=== PATIENT | female | born 1930 | race Caucasian/White ===

== ENCOUNTER → 2017-10-27 | Outpatient (CLI) | payer MEDICARE, MEDICAID ==
[~2017-10-27] MED LIST: ABA250I IV; ACET-2031 PO; ACET500T68 PO; ALBU8.5H IH; AMLO-96 PO; ASPI-757 PO; AZIT-1 PO; AZIT-17 PO; CEPH250C37 PO; CHOL200038 PO; CITA-139 PO; CORED OT; DONE5TAB29 PO; DUL20 PO; GOLYTE PO; HYDR-318 PO; HYDR-420 PO; HYDR-4308 PO; IBUP400T13 PO; LACT1CAP74 PO; LEFL20TA6 PO; LEV112 PO; LEV125 PO; LEVO175T42 PO; LEVO200T50 PO; LEVO50TA86 PO; LISI-362 PO; MELA3TAB45 PO; MELO-207 PO; OMEP-125 PO; OMEP40CA48 PO; OXYGENHOME INH; PRE5 PO; PREG50CA48 PO; PROP20TA56 PO; TERB12GE TP; TRAZ-156 PO; VIT-9 PO
== END ==
LOC: ZZSPRING 00:17
PROVIDERS: ATTEND Family Medicine
DX: E03.9 Hypothyroidism, unspecified (principal); M06.9 Rheumatoid arthritis, unspecified; I10 Essential (primary) hypertension; R52 Pain, unspecified
CPT/HCPCS: 36415; 82310; 82374; 82435; 82565; 82947; 84132; 84295; 84443; 84520; 85027

== ENCOUNTER 2017-11-24 20:32 | Emergency (ER) | payer MEDICARE, MEDICAID ==
[~2017-11-24 20:32] MED LIST changes: +HYDR-385 PO; +[UNRECOGNIZED DRUG - CODE] MC; +[UNRECOGNIZED DRUG - CODE] MC
--- NOTE | 2017-11-24 20:45 | ER Report ---
History and Physical Time Seen By MD: 20:45 HPI/ROS CHIEF COMPLAINT: stomach pain after eating hearing aides HISTORY OF PRESENT ILLNESS: This is an 86 year old female. She is a resident of [facility]. The nurse noted that the patient had eaten her hearing aides, although the patient has dementia and does not remember doing this. There are still some parts of the hearing aides availabe, and the batteries were not eaten. It was after this that the patient was complaining of some stomach pain. These complaints are inconsistent, sometimes the pain is there and sometimes she denies pain. The patient is very hard of hearing without her hearing aides. Allergies: Coded Allergies: levofloxacin (Verified Allergy, Intermediate, Disoriented, 11/24/17) Sulfa (Sulfonamide Antibiotics) (Verified Allergy, Unknown, Hives, 11/24/17 ) sulfamethoxazole (Verified Allergy, Unknown, Hives, 11/24/17) tuberculin,PPD,multi-puncture (Verified Allergy, Unknown, 11/24/17) Home Meds Active Scripts Duloxetine Hcl (CYMBALTA) 20 Mg Capcr, 20 MG PO QDAY for 90 Days, #90 CAP Prov:KIRIT SHERWOOD MD 11/24/17 Hydrocodone Bit/Acetaminophen (HYDROCODON-ACETAMINOPHEN 5-325) 1 Each Tablet, 0.5 EACH PO QHS for 30 Days, #15 TAB Prov:KIRIT SHERWOOD MD 11/11/17 Incontinence Pad,Liner,Disp (UNDERPAD) 1 Each Each, PACK MC HS, #1 11 Refills Pack of 30 plus 11 refills Use 1 incontinence pad under pateint per night length of need: 99 months Prov:KIRIT SHERWOOD MD 11/10/17 Diaper,Brief,Adult,Disposable (OVERNIGHT BRIEFS) 1 Each Each, PACK MC HS, #1 11 Refills Pack of #30 plus 11 refills use 1 brief per night Length of need: 99 months Prov:KIRIT SHERWOOD MD 11/10/17 Omeprazole (OMEPRAZOLE) 20 Mg Capsule.dr, 1 CAP PO QODAY for 90 Days, #90 CAP 4 Refills Prov:KIRIT SHERWOOD MD 10/22/17 Acetaminophen (TYLENOL EXTRA STRENGTH) 500 Mg Tablet, 2 TAB PO BID for 90 Days, #180 TAB 1 Refill Prov:KIRIT SHERWOOD MD 10/08/17 Cholecalciferol (Vitamin D3) (VITAMIN D3) 2,000 Unit Tablet, 1 TAB PO DAILY, # 180 TAB 3 Refills Prov:KIRIT SHERWOOD MD 07/22/17 Trazodone Hcl (TRAZODONE HCL) 50 Mg Tablet, 25 MG PO QHS, #90 TAB 3 Refills Prov:KIRIT SHERWOOD MD 07/22/17 Levothyroxine Sodium (LEVOTHYROXINE SODIUM) 0.125 Mg Tab, 2 TAB PO QDAY for 90 Days, #180 TAB 3 Refills Prov:KIRIT SHERWOOD MD 07/15/17 Lactobacillus Rhamnosus Gg (CULTURELLE) 1 Each Capsule, 1 EACH PO DIRECTED, # 90 CAPSULE 4 Refills As directed on package. Prov:KIRIT SHERWOOD MD 07/06/17 Cephalexin (KEFLEX) 250 Mg Capsule, 1 CAP PO DAILY, #90 CAP 3 Refills Prov:SIGIFREDO PISANO MD 02/20/17 Melatonin (MELATONIN) 3 Mg Tablet.er, 3 MG PO HS, #90 TAB 3 Refills Prov:SIGIFREDO PISANO MD 02/13/17 Aspirin (ASPIRIN) 325 Mg Tablet, 1 TAB PO Q4-6H Y for PAIN, #90 TAB 3 Refills Prov:SIGIFREDO PISANO MD 11/25/16 Neomycin/Polymyxin B Sulf/Hc (Cortisporin [DSC] EAR SOLN) 10 Ml Solution, 2 DROP OT PRN, #1 BOT 3 Refills Prov:SIGIFREDO PISANO MD 11/25/16 Albuterol Sulfate 90 Mcg/Act (PROAIR HFA 90 MCG/ACT) 8.5 Gm Hfa.aer.ad, 2 PUFF IH Q4-6H Y for WHEEZING, #3 INHALER 3 Refills Prov:SIGIFREDO PISANO MD 11/25/16 Reported Medications Vit A/Vit C/Vit E/Zinc/Copper (PRESERVISION AREDS TABLET) 1 Each Tablet, PO 07/22/17 Acetaminophen (ACETAMINOPHEN) 325 Mg Tablet, 1-2 TAB PO Q4-6H Y for PAIN, TAB 04/29/17 Oxygen (OXYGEN) Inha, 3 L INH, L 11/25/16 Reviewed Nurses Notes: Yes Smoking Status: Never Smoker Hx Substance Use Disorder: Yes (OPIOID DEPENDENCE) Hx Alcohol Use: No Constitutional Vital Sign - Last 24 Hours 11/24/17 11/24/17 11/24/17 20:39 22:19 22:29 Temp 98.6 Pulse 108 89 90 Resp 18 14 16 B/P (MAP) 150/88 136/73 (94) Pulse Ox 94 94 94 O2 Delivery Nasal Cannula Nasal Cannula Nasal Cannula O2 Flow Rate 3 Physical Exam General Appearance: Alert, no acute distress. Eyes: Pupils equal and round no injection. ENT: Normal oral mucosa. Moist mucous membranes. Normal posterior oropharynx. Neck: Neck is supple and non tender. Respiratory: Chest is non tender, lungs are clear to auscultation. Cardiac: regular rate and rhythm Gastrointestinal: Abdomen is soft, discomfort periumbilical area, nondistended, no rebound or guarding. DIFFERENTIAL DIAGNOSIS: After history and physical exam differential diagnosis was considered for concern about abdominal pain after eating hearing aids. We will go ahead and get an abdomen three-view Medical Decision Making EKG/Imaging Imaging ACUTE ABDOMEN SERIES 3 VIEW HISTORY: Swallowed hearing aids. Abdominal pain. COMPARISON: Chest x-ray 01/01/2017 and 02/02/2017. No prior abdominal x-ray TECHNIQUE: PA upright view of the chest, AP supine and AP upright views of the abdomen. Chest: There is mild scarring or atelectasis at the left lateral lung base, unchanged. There is linear scar atelectasis at the right medial lung base, unchanged. No pneumothorax or pleural effusion. The cardiac and mediastinal silhouettes are within normal limits. There is mild aortic calcification. Bones and soft tissues are unremarkable. Abdomen: The distribution of bowel gas is normal, with bowel in all four quadrants as well as centrally. No free air. There is moderate stool in colon. No dilated loops of bowel. There are surgical clips in the right upper quadrant from cholecystectomy. No foreign body. There is are focal dense areas of splenic artery calcification, and there are 2 2 rounded calcifications that are likely calcified splenic artery aneurysms. The largest is 1.7 cm. There are mild to moderate vascular calcifications. There is moderate to severe degenerative change of the hips. There is moderate degenerative change of the spine, and there is a rightward lumbar curvature. 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 IMPRESSION: 1. No foreign body. 2. Stable chest without acute process. 3. Moderate stool burden without obstruction. Report Dictated By: Natalia Philippe at 11/24/2017 10:05 PM ED Course/Re-evaluation ED Course Some plastic noted in stomach, otherwise no problems. The patient is sleeping comfortably. Decision to Disposition Date: Nov 24, 2017 Decision to Disposition Time: 22:18 Depart Departure Latest Vital Signs Vital Signs Date Time Temp Pulse Resp B/P (MAP) Pulse Ox O2 Delivery O2 Flow Rate FiO2 11/24/17 22:29 90 16 136/73 (94) 94 Nasal Cannula 3 11/24/17 20:39 98.6 Impression: Primary Impression: Swallowed foreign body Condition: Improved Disposition: HOME OR SELF-CARE Referrals: KIRIT SHERWOOD MD (PCP) Patient Instructions: Foreign Body Ingestion (ED) Problem Qualifiers Primary Impression: Swallowed foreign body Encounter type: initial encounter Qualified Codes: T18.9XXA - Foreign body of alimentary tract, part unspecified, initial encounter FLORINDA APPIAH MD Nov 24, 2017 20:45
--- NOTE | 2017-11-24 22:13 | RADIOLOGY IMAGING REPORT ---
[place] [facility] [place] Judie [place] : 1930 MR: [id number] V: [id number] EXAM DATE: ORDERING PHYSICIAN: FLORINDA APPIAH TECHNOLOGIST: Location: [facility] Patient: Judie Perez : 1930 Visit/Account:[id number] Date of Sevice: 11/24/2017 ACUTE ABDOMEN SERIES 3 VIEW HISTORY: Swallowed hearing aids. Abdominal pain. COMPARISON: Chest x-ray 01/01/2017 and 02/02/2017. No prior abdominal x-ray TECHNIQUE: PA upright view of the chest, AP supine and AP upright views of the abdomen. Chest: There is mild scarring or atelectasis at the left lateral lung base, unchanged. There is linea r scar atelectasis at the right medial lung base, unchanged. No pneumothorax or pleural effusion. The cardiac and mediastinal silhouettes are within normal limits. There is mild aortic calcification. Ovi marnie and soft tissues are unremarkable. Abdomen: The distribution of bowel gas is normal, with bowel in all four quadrants as well as central ly. No free air. There is moderate stool in colon. No dilated loops of bowel. There are surgical clip s in the right upper quadrant from cholecystectomy. No foreign body. There is are focal dense areas of splenic artery calcification, and there are 2 2 rounded calcificati ons that are likely calcified splenic artery aneurysms. The largest is 1.7 cm. There are mild to mode rate vascular calcifications. There is moderate to severe degenerative change of the hips. There is m oderate degenerative change of the spine, and there is a rightward lumbar curvature. 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 IMPRESSION: 1. No foreign body. 2. Stable chest without acute process. 3. Moderate stool burden without obstruction. Report Dictated By: Natalia Philippe at 11/24/2017 10:05 PM Report E-Signed By: Natalia Philippe at 11/24/2017 10:09 PM WSN:[id number]
[2017-11-24 22:29] VITALS: BP 136/73
== END 2017-11-24 22:31 | disposition home or self-care (01) ==
LOC: ER 20:51
DX: T18.9XXA Foreign body of alimentary tract, part unspecified, initial encounter (principal)
CPT/HCPCS: 74022; 99282

== ENCOUNTER 2017-12-22 06:30 | Emergency (ER) | payer MEDICARE, MEDICAID ==
[~2017-12-22 06:30] MED LIST changes: +DICL100G39 TOP
--- NOTE | 2017-12-22 06:45 | ER Report ---
History and Physical Time Seen By MD: 06:41 Hx. of Stated Complaint: sob since early this morning. never complains or wants to go to hospital. today she requested she wanted to go the hospital (THADEDUS YOUNG MD) HPI/ROS Patient is an 86-year-old female with known history of COPD who is currently in penitentiary care. Patient awoke this morning complaining of shortness of breath. Caregivers called. They noted that the patient was on her typical 3 L of oxygen. She had subjective complaints of shortness of breath. They had noted that she had been coughing during the night. They noted that her oxygen saturation was as is typical and expected. However, when they listened to her lungs this morning they heard rales in all roldan. They note this patient typically never complains about things. She never wants to go to the doctor and she was requesting to go to the hospital As per phone conversation with penitentiary staff, patient is known to be followed for COPD, cardiac concerns with diastolic dysfunction, pulmonary hypertension, dementia. She has been in stable health until this morning. Patient herself complains of difficulty breathing. She states she doesn't want to take a deep breath because it is hard. I cannot tell from discussion with her if she is having pain with breathing. I cannot tell if she is having any chest pain. REVIEW OF SYSTEMS Gen.: No obvious fever or recent illnesses Eyes: Negative ENT: Denies runny nose or ear pain. No sore throat. Respiratory: As per history of present illness. Cough through the night. Complaints of shortness of breath Cardiac: No complaints of chest pain GI: Negative for acute changes per penitentiary personnel : Does have history of UTIs in the past Musculoskeletal: Negative Neurologic: Patient has no complaints the patient's daughter notes her to be subdued, less animated, and slower to respond and is typical (THADDEUS YONUG MD) Allergies: Coded Allergies: levofloxacin (Verified Allergy, Intermediate, Disoriented, 12/22/17) Sulfa (Sulfonamide Antibiotics) (Verified Allergy, Unknown, Hives, 12/22/17) sulfamethoxazole (Verified Allergy, Unknown, Hives, 12/22/17) tuberculin,PPD,multi-puncture (Verified Allergy, Unknown, 12/22/17) Home Meds Active Scripts Diclofenac Sodium 1% Gel (VOLTAREN 1% GEL) 100 Gm Gel..gram., 2 GM TOP QID for 30 Days, #1 TUBE 3 Refills Prov:KIRIT SHERWOOD MD 12/01/17 Hydrocodone Bit/Acetaminophen (HYDROCODON-ACETAMINOPHEN 5-325) 1 Each Tablet, 0.5 EACH PO BID for 30 Days, #30 TAB Prov:KIRIT SHERWOOD MD 12/01/17 Duloxetine Hcl (CYMBALTA) 20 Mg Capcr, 20 MG PO QDAY for 90 Days, #90 CAP Prov:KIRIT SHERWOOD MD 11/24/17 Incontinence Pad,Liner,Disp (UNDERPAD) 1 Each Each, PACK MC HS, #1 11 Refills Pack of 30 plus 11 refills Use 1 incontinence pad under pateint per night length of need: 99 months Prov:KIRIT SHERWOOD MD 11/10/17 Diaper,Brief,Adult,Disposable (OVERNIGHT BRIEFS) 1 Each Each, PACK MC HS, #1 11 Refills Pack of #30 plus 11 refills use 1 brief per night Length of need: 99 months Prov:KIRIT SHERWOOD MD 11/10/17 Omeprazole (OMEPRAZOLE) 20 Mg Capsule.dr, 1 CAP PO QODAY for 90 Days, #90 CAP 4 Refills Prov:KIRIT SHERWOOD MD 10/22/17 Acetaminophen (TYLENOL EXTRA STRENGTH) 500 Mg Tablet, 2 TAB PO BID for 90 Days, #180 TAB 1 Refill Prov:KIRIT SHERWOOD MD 10/08/17 Cholecalciferol (Vitamin D3) (VITAMIN D3) 2,000 Unit Tablet, 1 TAB PO DAILY, # 180 TAB 3 Refills Prov:KIRIT SHERWOOD MD 07/22/17 Trazodone Hcl (TRAZODONE HCL) 50 Mg Tablet, 25 MG PO QHS, #90 TAB 3 Refills Prov:KIRIT SHERWOOD MD 07/22/17 Levothyroxine Sodium (LEVOTHYROXINE SODIUM) 0.125 Mg Tab, 2 TAB PO QDAY for 90 Days, #180 TAB 3 Refills Prov:KIRIT SHERWOOD MD 07/15/17 Lactobacillus Rhamnosus Gg (CULTURELLE) 1 Each Capsule, 1 EACH PO DIRECTED, # 90 CAPSULE 4 Refills As directed on package. Prov:KIRIT SHERWOOD MD 07/06/17 Cephalexin (KEFLEX) 250 Mg Capsule, 1 CAP PO DAILY, #90 CAP 3 Refills Prov:SIGIFREDO PISANO MD 02/20/17 Melatonin (MELATONIN) 3 Mg Tablet.er, 3 MG PO HS, #90 TAB 3 Refills Prov:SIGIFREDO PISANO MD 02/13/17 Aspirin (ASPIRIN) 325 Mg Tablet, 1 TAB PO Q4-6H Y for PAIN, #90 TAB 3 Refills Prov:SIGIFREDO PISANO MD 11/25/16 Neomycin/Polymyxin B Sulf/Hc (Cortisporin [DSC] EAR SOLN) 10 Ml Solution, 2 DROP OT PRN, #1 BOT 3 Refills Prov:SIGIFREDO PISANO MD 11/25/16 Albuterol Sulfate 90 Mcg/Act (PROAIR HFA 90 MCG/ACT) 8.5 Gm Hfa.aer.ad, 2 PUFF IH Q4-6H Y for WHEEZING, #3 INHALER 3 Refills Prov:SIGIFREDO PISANO MD 11/25/16 Reported Medications Vit A/Vit C/Vit E/Zinc/Copper (PRESERVISION AREDS TABLET) 1 Each Tablet, PO 07/22/17 Acetaminophen (ACETAMINOPHEN) 325 Mg Tablet, 1-2 TAB PO Q4-6H Y for PAIN, TAB 04/29/17 Oxygen (OXYGEN) Inha, 3 L INH, L 11/25/16 Past Medical/Surgical History Past medical history for neuropathy, stroke, macular degeneration, hypertension , diastolic dysfunction, aortic sclerosis, sleep apnea, COPD, cor pulmonale, diverticulosis, gastroesophageal reflux disease, osteopenia, hyperparathyroidism , hypothyroidism, vitamin D deficiency. (AJAY ENRIQUEZ MD) Smoking Status: Never Smoker Hx Substance Use Disorder: Yes (OPIOID DEPENDENCE) Hx Alcohol Use: No (THADDEUS YOUNG MD) Constitutional Vital Sign - Last 24 Hours 12/22/17 12/22/17 12/22/17 12/22/17 06:36 06:37 06:45 07:00 Temp 98.4 Pulse 78 78 Resp 18 19 B/P (MAP) 169/84 169/84 (112) 158/89 (112) Pulse Ox 93 95 O2 Delivery Nasal Cannula 12/22/17 12/22/17 12/22/17 12/22/17 07:02 07:10 07:15 07:30 Pulse 77 78 80 Resp 20 21 12 B/P (MAP) 178/94 (122) Pulse Ox 96 O2 Flow Rate 3.0 12/22/17 12/22/17 12/22/17 12/22/17 07:35 07:50 07:52 07:52 Pulse 76 79 77 Resp 19 19 14 Pulse Ox 97 99 98 O2 Delivery Nasal Cannula O2 Flow Rate 3.0 12/22/17 12/22/17 12/22/17 12/22/17 07:59 08:00 08:05 08:20 Pulse 75 78 84 Resp 14 19 19 B/P (MAP) 180/87 (118) Pulse Ox 96 96 12/22/17 12/22/17 12/22/17 12/22/17 08:23 08:28 08:30 08:33 Pulse 83 82 85 Resp 20 9 4 B/P (MAP) 154/69 (97) Pulse Ox 95 95 96 12/22/17 12/22/17 12/22/17 12/22/17 08:38 08:40 08:40 08:43 Pulse 84 80 83 Resp 16 14 14 Pulse Ox 95 98 O2 Delivery Nasal Cannula O2 Flow Rate 3.0 12/22/17 12/22/17 08:47 08:48 Pulse 82 85 Resp 16 14 B/P (MAP) 149/100 (116) Pulse Ox 100 Intake and Output 12/22/17 12/22/17 12/23/17 14:59 22:59 06:59 Output Total 100 ml Balance -100 ml (AJAY ENRIQUEZ MD) Physical Exam General Appearance: The patient is alert, has no immediate need for airway protection and no signs of toxicity. Eyes: Sclerae and conjunctivae are clear. Pupils are equal round reactive to light. Extraocular motions are intact. ENT, Mouth: Mucous membranes are moist. Hearing aids are present Respiratory: Patient is hypoventilating. She is maintaining oxygen saturations of 95% on her typical 3 L. She does not want to take a deep breath for exam. Lungs are showing rales present in all roldan. Left appears slightly greater than right. No wheezing noted. Cardiovascular: Regular rate and rhythm. Gastrointestinal: Neurological: Patient is awake and alert. There is no lateralizing findings noted no obvious focal or cerebellar findings. Patient's demeanor is very subdued. She is slow to respond. She does have some underlying dementia but she is conversant. Skin: Warm and dry, no rashes. Musculoskeletal: Neck is supple non tender. Extremities are nontender, nonswollen and have full range of motion. (THADDEUS YOUNG MD) Medical Decision Making Data Points Result Diagram: 12/22/17 0715 12/22/17 0715 Laboratory Hematology Test 12/22/17 07:15 12/22/17 07:23 12/22/17 07:40 Red Blood Count 4.86 M/uL (4.17-5.56) Mean Corpuscular Volume 78.3 fL (80.0-96.0) Mean Corpuscular Hemoglobin 26.8 pg (26.0-33.0) Mean Corpuscular Hemoglobin Concent 34.2 g/dL (32.0-36.0) Red Cell Distribution Width 15.6 % (11.5-14.5) Mean Platelet Volume 7.0 fL (7.2-11.1) Neutrophils (%) (Auto) 75.4 % (39.4-72.5) Lymphocytes (%) (Auto) 15.0 % (17.6-49.6) Monocytes (%) (Auto) 9.5 % (4.1-12.4) Eosinophils (%) (Auto) 0.0 % (0.4-6.7) Basophils (%) (Auto) 0.1 % (0.3-1.4) Nucleated RBC Relative Count (auto) 0.1 /100WBC Neutrophils # (Auto) 6.2 K/uL (2.0-7.4) Lymphocytes # (Auto) 1.2 K/uL (1.3-3.6) Monocytes # (Auto) 0.8 K/uL (0.3-1.0) Eosinophils # (Auto) 0.0 K/uL (0.0-0.5) Basophils # (Auto) 0.0 K/uL (0.0-0.1) Nucleated RBC Absolute Count (auto) 0.01 K/uL Prothrombin Time 14.3 seconds (12.0-14.4) Prothromb Time International Ratio 1.10 Activated Partial Thromboplast Time 40 seconds (23-35) Sodium Level 137 mmol/L (137-145) Potassium Level 4.1 mmol/L (3.5-5.0) Chloride Level 97 mmol/L (98-107) Carbon Dioxide Level 27 mmol/L (22-31) Blood Urea Nitrogen 12 mg/dl (7-18) Creatinine 0.90 mg/dl (0.52-1.04) Glomerular Filtration Rate Calc 59.7 Random Glucose 106 mg/dl (75-110) Calcium Level 9.5 mg/dl (8.4-10.2) Total Bilirubin 0.5 mg/dl (0.2-1.3) Aspartate Amino Transf (AST/SGOT) 25 U/L (0-35) Alanine Aminotransferase (ALT/SGPT) 30 U/L (0-56) Alkaline Phosphatase 86 U/L (0-126) Troponin I < 0.012 ng/ml B-Type Natriuretic Peptide 18 pg/ml (0-100) Total Protein 7.8 gm/dl (6.3-8.2) Albumin 4.1 g/dl (3.5-5.0) Urine Color Yellow Urine Clarity Clear Urine pH 6.0 pH (4.8-9.5) Urine Specific Plato 1.013 Urine Protein Negative mg/dL (NEGATIVE) Urine Glucose (UA) Negative mg/dL (NEGATIVE) Urine Ketones Negative mg/dL (NEGATIVE) Urine Blood Negative (NEGATIVE) Urine Nitrite Negative (NEGATIVE) Urine Bilirubin Negative (NEGATIVE) Urine Urobilinogen Negative mg/dL (0.2-1.9) Urine Leukocyte Esterase Negative (NEGATIVE) Urine RBC None /HPF (0-2/HPF) Urine WBC 1 /HPF (0-5/HPF) Urine Squamous Epithelial Cells None /LPF (NONE-FEW) Urine Bacteria Negative /HPF (NONE-FEW) Urine Mucus None /HPF (NONE-FEW) Blood Gas Puncture Site Right radial Blood Gas Patient Temperature 98.4 DEGREES Arterial Blood pH 7.40 (7.35-7.45) Arterial Blood Partial Pressure CO2 42 mmHg (32-37) Arterial Blood Partial Pressure O2 85 mmHg (60-80) Arterial Blood HCO3 27 mmol/L (20-26) Arterial Blood Oxygen Saturation 96 % (92-100) Arterial Blood Base Excess 2.0 mmol/L Irwin Test Acceptable Oxygen Liters/Minute 3l Chemistry Test 12/22/17 07:15 12/22/17 07:23 12/22/17 07:40 White Blood Count 8.2 k/uL (4.5-11.0) Red Blood Count 4.86 M/uL (4.17-5.56) Hemoglobin 13.0 g/dL (12.0-16.0) Hematocrit 38.1 % (34.0-47.0) Mean Corpuscular Volume 78.3 fL (80.0-96.0) Mean Corpuscular Hemoglobin 26.8 pg (26.0-33.0) Mean Corpuscular Hemoglobin Concent 34.2 g/dL (32.0-36.0) Red Cell Distribution Width 15.6 % (11.5-14.5) Platelet Count 220 K/uL (150-450) Mean Platelet Volume 7.0 fL (7.2-11.1) Neutrophils (%) (Auto) 75.4 % (39.4-72.5) Lymphocytes (%) (Auto) 15.0 % (17.6-49.6) Monocytes (%) (Auto) 9.5 % (4.1-12.4) Eosinophils (%) (Auto) 0.0 % (0.4-6.7) Basophils (%) (Auto) 0.1 % (0.3-1.4) Nucleated RBC Relative Count (auto) 0.1 /100WBC Neutrophils # (Auto) 6.2 K/uL (2.0-7.4) Lymphocytes # (Auto) 1.2 K/uL (1.3-3.6) Monocytes # (Auto) 0.8 K/uL (0.3-1.0) Eosinophils # (Auto) 0.0 K/uL (0.0-0.5) Basophils # (Auto) 0.0 K/uL (0.0-0.1) Nucleated RBC Absolute Count (auto) 0.01 K/uL Prothrombin Time 14.3 seconds (12.0-14.4) Prothromb Time International Ratio 1.10 Activated Partial Thromboplast Time 40 seconds (23-35) Glomerular Filtration Rate Calc 59.7 Calcium Level 9.5 mg/dl (8.4-10.2) Total Bilirubin 0.5 mg/dl (0.2-1.3) Aspartate Amino Transf (AST/SGOT) 25 U/L (0-35) Alanine Aminotransferase (ALT/SGPT) 30 U/L (0-56) Alkaline Phosphatase 86 U/L (0-126) Troponin I < 0.012 ng/ml B-Type Natriuretic Peptide 18 pg/ml (0-100) Total Protein 7.8 gm/dl (6.3-8.2) Albumin 4.1 g/dl (3.5-5.0) Urine Color Yellow Urine Clarity Clear Urine pH 6.0 pH (4.8-9.5) Urine Specific Plato 1.013 Urine Protein Negative mg/dL (NEGATIVE) Urine Glucose (UA) Negative mg/dL (NEGATIVE) Urine Ketones Negative mg/dL (NEGATIVE) Urine Blood Negative (NEGATIVE) Urine Nitrite Negative (NEGATIVE) Urine Bilirubin Negative (NEGATIVE) Urine Urobilinogen Negative mg/dL (0.2-1.9) Urine Leukocyte Esterase Negative (NEGATIVE) Urine RBC None /HPF (0-2/HPF) Urine WBC 1 /HPF (0-5/HPF) Urine Squamous Epithelial Cells None /LPF (NONE-FEW) Urine Bacteria Negative /HPF (NONE-FEW) Urine Mucus None /HPF (NONE-FEW) Blood Gas Puncture Site Right radial Blood Gas Patient Temperature 98.4 DEGREES Arterial Blood pH 7.40 (7.35-7.45) Arterial Blood Partial Pressure CO2 42 mmHg (32-37) Arterial Blood Partial Pressure O2 85 mmHg (60-80) Arterial Blood HCO3 27 mmol/L (20-26) Arterial Blood Oxygen Saturation 96 % (92-100) Arterial Blood Base Excess 2.0 mmol/L Irwin Test Acceptable Oxygen Liters/Minute 3l Coagulation Test 12/22/17 07:15 Prothrombin Time 14.3 seconds Prothromb Time International Ratio 1.10 Activated Partial Thromboplast Time 40 seconds Urinalysis Test 12/22/17 07:23 Urine Color Yellow Urine Clarity Clear Urine pH 6.0 pH (4.8-9.5) Urine Specific Plato 1.013 Urine Protein Negative mg/dL (NEGATIVE) Urine Glucose (UA) Negative mg/dL (NEGATIVE) Urine Ketones Negative mg/dL (NEGATIVE) Urine Blood Negative (NEGATIVE) Urine Nitrite Negative (NEGATIVE) Urine Bilirubin Negative (NEGATIVE) Urine Urobilinogen Negative mg/dL (0.2-1.9) Urine Leukocyte Esterase Negative (NEGATIVE) Urine RBC None /HPF (0-2/HPF) Urine WBC 1 /HPF (0-5/HPF) Urine Squamous Epithelial Cells None /LPF (NONE-FEW) Urine Bacteria Negative /HPF (NONE-FEW) Urine Mucus None /HPF (NONE-FEW) (AJAY ENRIQUEZ MD) Microbiology Microbiology Date/Time Source Procedure Growth Status 12/22/17 07:23 Blood Peripheral Draw Blood Culture - Preliminary NO GROWTH SO FAR, SET LATE. REINCUBATED Resulted 12/22/17 07:15 Blood Peripheral Draw Blood Culture - Preliminary NO GROWTH SO FAR, SET LATE. REINCUBATED Resulted (AJAY ENRIQUEZ MD) EKG/Imaging EKG Interpretation EKG shows a right bundle branch block without significant ST segment or T-wave abnormality. EKG is essentially unchanged from one that was obtained on 2016. Imaging FACILITY: [facility] PATIENT NAME: Judie Perez : 1930 MR: [id number] V: [id number] EXAM DATE: [id number] ORDERING PHYSICIAN: THADDEUS YOUNG TECHNOLOGIST: Location: [facility] [place] Patient: Judie Perez : 1930 Visit/Account:[id number] Date of Sevice: 12/22/2017 Exam type: CHEST SINGLE AP History: RESP DISTRESS Comparison: February 02, 2017. Findings: Cardiac silhouette is upper limits of normal in size. There is moderate ectasia the thoracic aorta. There is mild interstitial prominence throughout the lungs that appear similar to the prior study when allowing for the slight difference in radiographic technique. No focal airspace consolidation is seen. There is no evidence of overt pulmonary edema or pleural effusions. IMPRESSION: 1. Mild chronic interstitial changes but the lungs appear some are to the prior study Borderline cardiomegaly Report Dictated By: Jossie Nova MD at 12/22/2017 8:30 AM Report E-Signed By: Jossie Nova MD at 12/22/2017 8:32 AM WSN:[email or web address] (AJAY ENRIQUEZ MD) ED Course/Re-evaluation ED Course 12/22/2017 7:25:52 am and care of patient at 7 AM. Plan at this time will be to perform cardiac workup as well as workup for dyspnea. We'll obtain chest x- ray EKG blood work including troponin and brain atrophy peptide ABG. Re-evaluation 12/22/2017 8:35:27 am patient improved after 1 DuoNeb. Patient's primary care physician Dr. Sherwood was down to see the patient. She agrees the patient can be discharged home back to her memory unit. We will add albuterol nebulizer every 6 hours as needed for cough or shortness of breath. Decision to Disposition Date: December 22, 2017 Decision to Disposition Time: 09:07 (AJAY ENRIQUEZ MD) Depart Departure Latest Vital Signs Vital Signs Date Time Temp Pulse Resp B/P (MAP) Pulse Ox O2 Delivery O2 Flow Rate FiO2 12/22/17 08:48 85 14 149/100 (116) 100 12/22/17 08:40 Nasal Cannula 3.0 12/22/17 06:36 98.4 (AJAY ENRIQUEZ MD) Impression: Primary Impression: COPD exacerbation Condition: Improved Referrals: KIRIT SHERWOOD MD (PCP) 2 Days Departure Forms: ER Transition Record, Home Oxygen, Nebulizer RX, [facility]xygen [facility]ul[facility] Reason for Use/Diagnosis: copd Start Date of the Order: December 22, 2017 Route of Administration (if applicable): Other Duration Home O2 Required: 99 Duration Units: Days Room Air Oxygen Saturation: 86 ER Prescribing Physician's Name: Ajay Enriquez NPI Numbers for Local ER MDs: Mina [id number] Medications Reconciliation, Patient Portal Information Patient Instructions: COPD (Chronic Obstructive Pulmonary Disease) (GEN) Additional Instructions: Albuterol nebulizer 1 unit dose of 0.083% albuterol every 6 hours as needed for cough or shortness of breath. Standing order THADDEUS YOUNG MD December 22, 2017 06:45 AJAY ENRIQUEZ MD December 22, 2017 07:19
--- NOTE | 2017-12-22 07:28 | EKG ---
FACILITY: [facility] PATIENT NAME: CRISTI العراقي : [id number] MR: [id number] V: [id number] EXAM DATE: ORDERING PHYSICIAN: THADDEUS YOUNG TECHNOLOGIST: RAFAELA López Reason : RESPIRATORY PROBLEM Blood Pressure : / mmHG Vent. Rate : 078 BPM Atrial Rate : 078 BPM P-R Int : 208 ms QRS Dur : 134 ms QT Int : 422 ms P-R-T Axes : 035 270 -10 degrees QTc Int : 481 ms Normal sinus rhythm Right bundle branch block Anterolateral infarct (cited on or before 22-DEC-2017) Abnormal ECG When compared with ECG of 08-JAN-2017 11:33, Previous ECG has undetermined rhythm, needs review Criteria for Inferior infarct are no longer present Confirmed by ALYX JORGE ([id number]) on 12/22/2017 12:07:16 PM Referred By: Confirmed By:ALYX JORGE
[2017-12-22 07:40] LABS: INR 1.1
[2017-12-22 07:42] LABS: PLATELET COUNT, AUTOMATED 220 K/uL (150-450)
[2017-12-22] MEDS ORDERED: ALBUTEROL/IPRATROPIUM 3 ML NEB NEB ONE ×2 (07:50→08:35)
--- NOTE | 2017-12-22 08:37 | RADIOLOGY IMAGING REPORT ---
FACILITY: [facility] PATIENT NAME: Judie Perez : 1930 MR: [id number] V: [id number] EXAM DATE: ORDERING PHYSICIAN: THADDEUS YOUNG TECHNOLOGIST: Location: [facility] - [place] Patient: Judie Perez : 1930 Visit/Account:[id number] Date of Sevice: 12/22/2017 Exam type: CHEST SINGLE AP History: RESP DISTRESS Comparison: February 02, 2017. Findings: Cardiac silhouette is upper limits of normal in size. There is moderate ectasia the thoracic aorta. There is mild interstitial prominence throughout the lungs that appear similar to the prior study wh en allowing for the slight difference in radiographic technique. No focal airspace consolidation is seen. There is no evidence of overt pulmonary edema or pleural effusions. IMPRESSION: 1. Mild chronic interstitial changes but the lungs appear some are to the prior study Borderline cardiomegaly Report Dictated By: Jossie Nova MD at 12/22/2017 8:30 AM Report E-Signed By: Jossie Nova MD at 12/22/2017 8:32 AM WSN:[email or web address]
[2017-12-22 08:48] VITALS: BP 149/100
== END 2017-12-22 08:55 | disposition home or self-care (01) ==
LOC: ER 06:36
DX: J44.1 Chronic obstructive pulmonary disease with (acute) exacerbation (principal); I45.10 Unspecified right bundle-branch block; R94.31 Abnormal electrocardiogram [ECG] [EKG]
CPT/HCPCS: 36415; 36600; 71045; 81001; 82803; 83880; 84484; 85025; 85610; 85730; 87040; 87088; 93005; 94640; 99284; A4353; J7620; 82040; 82247; 82310; 82374; 82435; 82565; 82947; 84075; 84132; 84155; 84295; 84450; 84460; 84520

== ENCOUNTER → 2018-03-05 | Outpatient (CLI) | payer MEDICARE, MEDICAID ==
[~2018-03-05] MED LIST changes: -CITA-139 PO; +CITA-145 PO; +CLOB15OI16 TP; +MELA10CA PO; +POLY119P24 PO; +RANI150C17 PO; -TRAZ-156 PO; +TRAZ50TA34 PO
== END ==
LOC: LAB 16:53
PROVIDERS: ATTEND Nurse Practitioner Primary Care
DX: N89.8 Other specified noninflammatory disorders of vagina (principal)
CPT/HCPCS: 87210

== ENCOUNTER 2018-03-23 09:30 | Inpatient (IN) | payer MEDICARE, MEDICAID ==
[~2018-03-23] VITALS: Ht 162.6 cm; Wt 83.0 kg
[2018-03-23] VITALS (8 sets, daily range): BP systolic 133–165; BP diastolic 66–96
[~2018-03-23 09:30] MED LIST changes: -MELO-205 PO
[2018-03-23] MEDS ORDERED: MELO-205 PO (10:20)
--- NOTE | 2018-03-23 10:27 | ER Report ---
History and Physical Time Seen By MD: 09:35 Hx. of Stated Complaint: PT PRESENTS WITH HX OF LOW PLATELETS. PT HAS NO COMPLAINTS, PT FAMILY NOTES INCREASED BRUISING HPI/ROS CHIEF COMPLAINT: Low platelets HISTORY OF PRESENT ILLNESS: Patient is an 87-year-old female who arrives from [facility] with abnormal lab value of low platelets at 23, 000. Patient has also been having some bruising to bilateral lower extremities as well as abdominal wall. Patient herself feels fine and offers no symptoms other than the bruising. She denies any headache or chest pain she denies shortness of breath she denies abdominal pain she denies any black or tarry stools. She denies any blood in her urine. Patient has no prior history that she is aware of of low platelets. REVIEW OF SYSTEMS: Constitutional: No fever, no chills. Eyes: No discharge. ENT: No sore throat. Cardiovascular: No chest pain, no palpitations. Respiratory: No cough, no shortness of breath. Gastrointestinal: No abdominal pain, no vomiting. Genitourinary: No hematuria. Musculoskeletal: No back pain. Skin: Bruising Neurological: No headache. Allergies: Coded Allergies: levofloxacin (Verified Allergy, Intermediate, Disoriented, 03/23/18) Sulfa (Sulfonamide Antibiotics) (Verified Allergy, Unknown, Hives, 03/23/18) sulfamethoxazole (Verified Allergy, Unknown, Hives, 03/23/18) tuberculin,PPD,multi-puncture (Verified Allergy, Unknown, 03/23/18) clobetasol (Verified Adverse Reaction, Unknown, Rash, 03/23/18) Home Meds Active Scripts Diphenhydramine Hcl/Zinc Acet (BENADRYL ITCH STOPPING CRM) 28.3 Gm Cream..g., 1 MIGUEL TP QID Y for ITCHING, #1 BOT 1 Refill Prov:MAXIM FARMER DNP, FIELD SERVICE SUPERVISOR-BC 03/17/18 Duloxetine Hcl (CYMBALTA) 20 Mg Capcr, 2 TAB PO QDAY for 30 Days, #60 CAP 11 Refills Prov:KIRIT SHERWOOD MD 02/16/18 Hydrocodone Bit/Acetaminophen (HYDROCODON-ACETAMINOPHEN 5-325) 1 Each Tablet, 0.5 EACH PO BID Y for pain for 30 Days, #30 TAB Prov:KIRIT SHERWOOD MD 02/09/18 Polyethylene Glycol 3350 (MIRALAX) 119 Gm Powder, 17 GM PO DAILY for 30 Days, # 1 BOTTLE 11 Refills Add 17gm of miralax to juice or water daily. Hold dose if diarrhea. Prov:KIRIT SHERWOOD MD 02/04/18 Trazodone Hcl (TRAZODONE HCL) 50 Mg Tablet, 25 MG PO QHS, #90 TAB 3 Refills Prov:KIRIT SHERWOOD MD 02/03/18 Melatonin (MELATONIN) 10 Mg Capsule, 1 CAP PO QHS for 90 Days, #90 CAPSULE 4 Refills Prov:KIRIT SHERWOOD MD 01/19/18 Ranitidine Hcl (RANITIDINE HCL) 150 Mg Capsule, 1 CAP PO QHS for 90 Days, #90 CAPSULE 4 Refills Prov:KIRIT SHERWOOD MD 01/19/18 Acetaminophen (TYLENOL EXTRA STRENGTH) 500 Mg Tablet, 2 TAB PO BID for 90 Days, #360 TAB 4 Refills Prov:KIRIT SHERWOOD MD 01/04/18 Diclofenac Sodium 1% Gel (VOLTAREN 1% GEL) 100 Gm Gel..gram., 2 GM TOP QID for 30 Days, #1 TUBE 3 Refills Prov:KIRIT SHERWOOD MD 12/01/17 Incontinence Pad,Liner,Disp (UNDERPAD) 1 Each Each, PACK MC HS, #1 11 Refills Pack of 30 plus 11 refills Use 1 incontinence pad under pateint per night length of need: 99 months Prov:KIRIT SHERWOOD MD 11/10/17 Diaper,Brief,Adult,Disposable (OVERNIGHT BRIEFS) 1 Each Each, PACK MC HS, #1 11 Refills Pack of #30 plus 11 refills use 1 brief per night Length of need: 99 months Prov:KIRIT SHERWOOD MD 11/10/17 Cholecalciferol (Vitamin D3) (VITAMIN D3) 2,000 Unit Tablet, 1 TAB PO DAILY, # 180 TAB 3 Refills Prov:KIRIT SHERWOOD MD 07/22/17 Levothyroxine Sodium (LEVOTHYROXINE SODIUM) 0.125 Mg Tab, 2 TAB PO QDAY for 90 Days, #180 TAB 3 Refills Prov:KIRIT SHERWOOD MD 07/15/17 Lactobacillus Rhamnosus Gg (CULTURELLE) 1 Each Capsule, 1 EACH PO DIRECTED, # 90 CAPSULE 4 Refills As directed on package. Prov:KIRIT SHERWOOD MD 07/06/17 Aspirin (ASPIRIN) 325 Mg Tablet, 1 TAB PO Q4-6H Y for PAIN, #90 TAB 3 Refills Prov:SIGIFREDO PISANO MD 11/25/16 Neomycin/Polymyxin B Sulf/Hc (Cortisporin [DSC] EAR SOLN) 10 Ml Solution, 2 DROP OT PRN, #1 BOT 3 Refills Prov:SIGIFREDO PISANO MD 11/25/16 Albuterol Sulfate 90 Mcg/Act (PROAIR HFA 90 MCG/ACT) 8.5 Gm Hfa.aer.ad, 2 PUFF IH Q4-6H Y for WHEEZING, #3 INHALER 3 Refills Prov:SIGIFREDO PISANO MD 11/25/16 Reported Medications Meloxicam (MELOXICAM) 7.5 Mg Tablet, 7.5 MG PO QDAY 03/23/18 Oxygen (OXYGEN) Inha, 3 L INH, L 11/25/16 Discontinued Reported Medications Vit A/Vit C/Vit E/Zinc/Copper (PRESERVISION AREDS TABLET) 1 Each Tablet, PO 07/22/17 Acetaminophen (ACETAMINOPHEN) 325 Mg Tablet, 1-2 TAB PO Q4-6H Y for PAIN, TAB 04/29/17 Discontinued Scripts Omeprazole (OMEPRAZOLE) 20 Mg Capsule.dr, 1 CAP PO QODAY for 90 Days, #90 CAP 4 Refills Prov:KIRIT SHERWOOD MD 10/22/17 Cephalexin (KEFLEX) 250 Mg Capsule, 1 CAP PO DAILY, #90 CAP 3 Refills Prov:SIGIFREDO PISANO MD 02/20/17 Clobetasol Propionate (CLOBETASOL PROPIONATE) 15 Gm Oint...g., 1 MIGUEL TP BID for 10 Days, #1 TUBE 0 Refills Prov:MAXIM FARMER DNP, FIELD SERVICE SUPERVISOR-BC 03/05/18 Past Medical/Surgical History Past medical history for migraine, neuropathy, stroke in 2016, history of Sjogren's disease, hypertension, diastolic cardiac dysfunction, gastroesophageal reflux disease, diverticulosis, osteopenia, anxiety, hypothyroidism, hyperparathyroidism, history of appendectomy, hysterectomy, parathyroidectomy, thyroidectomy Smoking Status: Never Smoker Hx Substance Use Disorder: Yes (OPIOID DEPENDENCE) Hx Alcohol Use: No Constitutional Vital Sign - Last 24 Hours 03/23/18 03/23/18 03/23/18 03/23/18 09:30 09:37 09:37 10:00 Temp 97.7 Pulse ??? 85 ??? Resp 20 B/P (MAP) 127/72 (90) 127/72 114/73 (87) Pulse Ox 94 95 O2 Delivery Nasal Cannula 03/23/18 03/23/18 03/23/18 03/23/18 10:30 11:00 11:05 11:30 Pulse ??? 68 75 B/P (MAP) 125/64 (84) 129/69 (89) 127/83 (98) Pulse Ox 94 96 96 03/23/18 11:35 Pulse 75 Pulse Ox 97 Physical Exam General/Constitutional: Patient is awake, alert, nontoxic and in no acute respiratory distress. Head: Normocephalic and atraumatic. Eyes: Conjunctival clear, Pupils are equal and reactive to light. Extraocular muscles are intact and symmetrical. Sclera are clear and anicteric. Ears:External canals are clear. Tympanic membranes are clear with normal landmarks and light reflex. Nares: No rhinorrhea or bleeding. Turbinates are pink and moist. Oropharyngeal: Mucous membranes are moist. There is no pharyngeal erythema or exudate. There are no palatal petechiae. Uvula is midline and symmetrical. Neck: Supple, no adenopathy. Cardiovascular: Heart is regular rate and rhythm without audible murmurs, rubs or gallops. Pulmonary: Lungs are clear to auscultation bilaterally. There are no wheezes, rales, or rhonchi. Chest rise is symmetrical Abdomen: Soft, nontender, no guarding or peritoneal signs. Extremities: No gross deformities, No peripheral cyanosis. Able to move all 4 extremities. Neuro: Alert and oriented X3, Cranial nerves 2 thru 12 are intact and symmetrical. Patient has normal gait. Skin: Bruising to bilateral inner thighs also bruising to abdominal wall Medical Decision Making Data Points Result Diagram: 03/23/18 1028 03/23/18 1018 Laboratory Hematology Test 03/23/18 10:18 03/23/18 10:28 03/23/18 10:46 Prothrombin Time 14.5 seconds (12.0-14.4) Prothromb Time International Ratio 1.12 Activated Partial Thromboplast Time 36 seconds (23-35) Sodium Level 138 mmol/L (137-145) Potassium Level 4.0 mmol/L (3.5-5.0) Chloride Level 101 mmol/L (98-107) Carbon Dioxide Level 27 mmol/L (22-31) Blood Urea Nitrogen 15 mg/dl (7-18) Creatinine 1.00 mg/dl (0.52-1.04) Glomerular Filtration Rate Calc 52.7 Random Glucose 127 mg/dl (75-110) Calcium Level 9.0 mg/dl (8.4-10.2) Total Bilirubin 0.5 mg/dl (0.2-1.3) Aspartate Amino Transf (AST/SGOT) 28 U/L (0-35) Alanine Aminotransferase (ALT/SGPT) 24 U/L (0-56) Alkaline Phosphatase 66 U/L (0-126) Total Protein 7.4 g/dl (6.3-8.2) Albumin 4.1 g/dl (3.5-5.0) Thyroid Stimulating Hormone (TSH) 0.03 uIU/ml (0.46-4.68) Red Blood Count 4.67 M/uL (4.17-5.56) Mean Corpuscular Volume 78.8 fL (80.0-96.0) Mean Corpuscular Hemoglobin 27.5 pg (26.0-33.0) Mean Corpuscular Hemoglobin Concent 34.9 g/dL (32.0-36.0) Red Cell Distribution Width 15.3 % (11.5-14.5) Mean Platelet Volume 9.4 fL (7.2-11.1) Neutrophils % (Manual) 77 % (39.4-72.5) Lymphocytes % (Manual) 15 % (17.6-49.6) Atypical Lymphocytes % 6 % Monocytes % (Manual) 2 % (4.1-12.4) Eosinophils % (Manual) 0 % (0.4-6.7) Basophils % (Manual) 0 % (0.3-1.4) Helicobacter pylori IgG Antibody Negative (NEGATIVE) HIV (1&2) Antibody Negative (NEGATIVE) Urine Color Faby Urine Clarity Cloudy Urine pH 5.0 pH (4.8-9.5) Urine Specific Fate 1.018 Urine Protein Negative mg/dL (NEGATIVE) Urine Glucose (UA) Negative mg/dL (NEGATIVE) Urine Ketones Negative mg/dL (NEGATIVE) Urine Blood Negative (NEGATIVE) Urine Nitrite Positive (NEGATIVE) Urine Bilirubin Negative (NEGATIVE) Urine Urobilinogen Negative mg/dL (0.2-1.9) Urine Leukocyte Esterase Large (NEGATIVE) Urine RBC 16 /HPF (0-2/HPF) Urine WBC 1085 /HPF (0-5/HPF) Urine WBC Clumps Many /HPF Urine Squamous Epithelial Cells None /LPF (NONE-FEW) Urine Transitional Epithelial Cells Many /LPF (NONE-FEW) Urine Bacteria Many /HPF (NONE-FEW) Urine Mucus Few /HPF (NONE-FEW) Urine Yeast (Budding) Few /HPF Chemistry Test 03/23/18 10:18 03/23/18 10:28 03/23/18 10:46 Prothrombin Time 14.5 seconds (12.0-14.4) Prothromb Time International Ratio 1.12 Activated Partial Thromboplast Time 36 seconds (23-35) Glomerular Filtration Rate Calc 52.7 Calcium Level 9.0 mg/dl (8.4-10.2) Total Bilirubin 0.5 mg/dl (0.2-1.3) Aspartate Amino Transf (AST/SGOT) 28 U/L (0-35) Alanine Aminotransferase (ALT/SGPT) 24 U/L (0-56) Alkaline Phosphatase 66 U/L (0-126) Total Protein 7.4 g/dl (6.3-8.2) Albumin 4.1 g/dl (3.5-5.0) Thyroid Stimulating Hormone (TSH) 0.03 uIU/ml (0.46-4.68) White Blood Count 8.9 k/uL (4.5-11.0) Red Blood Count 4.67 M/uL (4.17-5.56) Hemoglobin 12.8 g/dL (12.0-16.0) Hematocrit 36.8 % (34.0-47.0) Mean Corpuscular Volume 78.8 fL (80.0-96.0) Mean Corpuscular Hemoglobin 27.5 pg (26.0-33.0) Mean Corpuscular Hemoglobin Concent 34.9 g/dL (32.0-36.0) Red Cell Distribution Width 15.3 % (11.5-14.5) Platelet Count 28 K/uL (150-450) Mean Platelet Volume 9.4 fL (7.2-11.1) Neutrophils % (Manual) 77 % (39.4-72.5) Lymphocytes % (Manual) 15 % (17.6-49.6) Atypical Lymphocytes % 6 % Monocytes % (Manual) 2 % (4.1-12.4) Eosinophils % (Manual) 0 % (0.4-6.7) Basophils % (Manual) 0 % (0.3-1.4) Helicobacter pylori IgG Antibody Negative (NEGATIVE) HIV (1&2) Antibody Negative (NEGATIVE) Urine Color Faby Urine Clarity Cloudy Urine pH 5.0 pH (4.8-9.5) Urine Specific Fate 1.018 Urine Protein Negative mg/dL (NEGATIVE) Urine Glucose (UA) Negative mg/dL (NEGATIVE) Urine Ketones Negative mg/dL (NEGATIVE) Urine Blood Negative (NEGATIVE) Urine Nitrite Positive (NEGATIVE) Urine Bilirubin Negative (NEGATIVE) Urine Urobilinogen Negative mg/dL (0.2-1.9) Urine Leukocyte Esterase Large (NEGATIVE) Urine RBC 16 /HPF (0-2/HPF) Urine WBC 1085 /HPF (0-5/HPF) Urine WBC Clumps Many /HPF Urine Squamous Epithelial Cells None /LPF (NONE-FEW) Urine Transitional Epithelial Cells Many /LPF (NONE-FEW) Urine Bacteria Many /HPF (NONE-FEW) Urine Mucus Few /HPF (NONE-FEW) Urine Yeast (Budding) Few /HPF Coagulation Test 03/23/18 10:18 Prothrombin Time 14.5 seconds Prothromb Time International Ratio 1.12 Activated Partial Thromboplast Time 36 seconds Urinalysis Test 03/23/18 10:46 Urine Color Faby Urine Clarity Cloudy Urine pH 5.0 pH (4.8-9.5) Urine Specific Fate 1.018 Urine Protein Negative mg/dL (NEGATIVE) Urine Glucose (UA) Negative mg/dL (NEGATIVE) Urine Ketones Negative mg/dL (NEGATIVE) Urine Blood Negative (NEGATIVE) Urine Nitrite Positive (NEGATIVE) Urine Bilirubin Negative (NEGATIVE) Urine Urobilinogen Negative mg/dL (0.2-1.9) Urine Leukocyte Esterase Large (NEGATIVE) Urine RBC 16 /HPF (0-2/HPF) Urine WBC 1085 /HPF (0-5/HPF) Urine WBC Clumps Many /HPF Urine Squamous Epithelial Cells None /LPF (NONE-FEW) Urine Transitional Epithelial Cells Many /LPF (NONE-FEW) Urine Bacteria Many /HPF (NONE-FEW) Urine Mucus Few /HPF (NONE-FEW) Urine Yeast (Budding) Few /HPF ED Course/Re-evaluation Clinical Indication for ER IV: IV Access ED Course 03/23/2018 10:31:31 am patient with thrombocytopenia of unclear etiology; we will type and screen patient for transfusion of 2 unit donor platelets; The patient will be admitted to the floor for workup of thrombocytopenia Decision to Disposition Date: Mar 23, 2018 Decision to Disposition Time: 11:00 Depart Departure Latest Vital Signs Vital Signs Date Time Temp Pulse Resp B/P (MAP) Pulse Ox O2 Delivery O2 Flow Rate FiO2 03/23/18 11:35 75 97 03/23/18 11:30 127/83 (98) 03/23/18 09:37 97.7 20 Nasal Cannula Impression: Primary Impression: Thrombocytopenia Condition: Condition Unchanged Disposition: Admitted from ER (to Dr Maria) Referrals: KIRIT SHERWOOD MD (PCP) AJAY MARKHAM MD Mar 23, 2018 10:27
[2018-03-23 10:35] LABS: INR 1.12
[2018-03-23 10:45] LABS: PLATELET COUNT, AUTOMATED 28 K/uL (150-450)
[2018-03-23] MEDS ORDERED: cefTRIAXone 1 GM VIAL IVP ONE (11:05)
[2018-03-23] MEDS ORDERED: ONDANSETRON 4 MG/2 ML VIAL IVP PRN (12:55)
[2018-03-23] MEDS ORDERED: INFLUENZA VIRUS VAC 0.5 ML SYR IM ONLY ONE (12:55)
[2018-03-23] MEDS ORDERED: FLUSH 10 ML SYR IVP PRN (12:55)
[2018-03-23] MEDS ORDERED: ACETAMINOPHEN 325 MG TAB PO PRN (12:55)
[2018-03-23] MEDS ORDERED: ALBUTEROL 8 GM INHALER INH PRN (13:00)
[2018-03-23] MEDS ORDERED: diphenhydrAMINE/ZINC OXI 28 GM TP PRN (13:00)
[2018-03-23] MEDS ORDERED: NS(*) 0.9% 250 ML BAG 250 ML ONE (14:30)
--- NOTE | 2018-03-23 16:31 | History & Physical ---
History of Present Illness Chief Complaint Thrombocytopenia History of Present Illness 87F presented after found to have new thrombocytopenia on labs. Pt is poor medical scientist. Assisted living where she resides noted decreased platelets on lab and referred for further evaluation. UA appears to be concerning for UTI and given pt incontinence possibly worsening will begin Rx and monitor Cx. Denies any symptoms of illness, no petechia, some bruising on abdomen. Denies fever, chills, n/v, dysuria. Reports chronic urinary incontinence. History Problems: (1) Abdominal pain Status: Chronic (2) Melena Status: Chronic (3) Dementia (4) Hypothyroidism Status: Chronic (5) Obesity (BMI 30-39.9) Status: Chronic (6) Chronic respiratory failure with hypoxia Status: Chronic Home Meds Active Scripts Diphenhydramine Hcl/Zinc Acet (BENADRYL ITCH STOPPING CRM) 28.3 Gm Cream..g., 1 MIGUEL TP QID Y for ITCHING, #1 BOT 1 Refill Prov:MAXIM FARMER DNP, PROCUREMENT ANALYST-BC 03/17/18 Duloxetine Hcl (CYMBALTA) 20 Mg Capcr, 2 TAB PO QDAY for 30 Days, #60 CAP 11 Refills Prov:KIRIT SHERWOOD MD 02/16/18 Hydrocodone Bit/Acetaminophen (HYDROCODON-ACETAMINOPHEN 5-325) 1 Each Tablet, 0.5 EACH PO BID Y for pain for 30 Days, #30 TAB Prov:KIRIT SHERWOOD MD 02/09/18 Polyethylene Glycol 3350 (MIRALAX) 119 Gm Powder, 17 GM PO DAILY for 30 Days, # 1 BOTTLE 11 Refills Add 17gm of miralax to juice or water daily. Hold dose if diarrhea. Prov:KIRIT SHERWOOD MD 02/04/18 Trazodone Hcl (TRAZODONE HCL) 50 Mg Tablet, 25 MG PO QHS, #90 TAB 3 Refills Prov:KIRIT SHERWOOD MD 02/03/18 Melatonin (MELATONIN) 10 Mg Capsule, 1 CAP PO QHS for 90 Days, #90 CAPSULE 4 Refills Prov:KIRIT SHERWOOD MD 01/19/18 Ranitidine Hcl (RANITIDINE HCL) 150 Mg Capsule, 1 CAP PO QHS for 90 Days, #90 CAPSULE 4 Refills Prov:KIRIT SHERWOOD MD 01/19/18 Acetaminophen (TYLENOL EXTRA STRENGTH) 500 Mg Tablet, 2 TAB PO BID for 90 Days, #360 TAB 4 Refills Prov:KIRIT SHERWOOD MD 01/04/18 Diclofenac Sodium 1% Gel (VOLTAREN 1% GEL) 100 Gm Gel..gram., 2 GM TOP QID for 30 Days, #1 TUBE 3 Refills Prov:KIRIT SHERWOOD MD 12/01/17 Incontinence Pad,Liner,Disp (UNDERPAD) 1 Each Each, PACK MC HS, #1 11 Refills Pack of 30 plus 11 refills Use 1 incontinence pad under pateint per night length of need: 99 months Prov:KIRIT SHERWOOD MD 11/10/17 Diaper,Brief,Adult,Disposable (OVERNIGHT BRIEFS) 1 Each Each, PACK MC HS, #1 11 Refills Pack of #30 plus 11 refills use 1 brief per night Length of need: 99 months Prov:KIRIT SHERWOOD MD 11/10/17 Cholecalciferol (Vitamin D3) (VITAMIN D3) 2,000 Unit Tablet, 1 TAB PO DAILY, # 180 TAB 3 Refills Prov:KIRIT SHERWOOD MD 07/22/17 Levothyroxine Sodium (LEVOTHYROXINE SODIUM) 0.125 Mg Tab, 2 TAB PO QDAY for 90 Days, #180 TAB 3 Refills Prov:KIRIT SHERWOOD MD 07/15/17 Lactobacillus Rhamnosus Gg (CULTURELLE) 1 Each Capsule, 1 EACH PO DIRECTED, # 90 CAPSULE 4 Refills As directed on package. Prov:KIRIT SHERWOOD MD 07/06/17 Aspirin (ASPIRIN) 325 Mg Tablet, 1 TAB PO Q4-6H Y for PAIN, #90 TAB 3 Refills Prov:SIGIFREDO PISANO MD 11/25/16 Neomycin/Polymyxin B Sulf/Hc (Cortisporin [DSC] EAR SOLN) 10 Ml Solution, 2 DROP OT PRN, #1 BOT 3 Refills Prov:SIGIFREDO PISANO MD 11/25/16 Albuterol Sulfate 90 Mcg/Act (PROAIR HFA 90 MCG/ACT) 8.5 Gm Hfa.aer.ad, 2 PUFF IH Q4-6H Y for WHEEZING, #3 INHALER 3 Refills Prov:SIGIFREDO PISANO MD 11/25/16 Reported Medications Meloxicam (MELOXICAM) 7.5 Mg Tablet, 7.5 MG PO QDAY 03/23/18 Oxygen (OXYGEN) Inha, 3 L INH, L 11/25/16 Discontinued Reported Medications Vit A/Vit C/Vit E/Zinc/Copper (PRESERVISION AREDS TABLET) 1 Each Tablet, PO 07/22/17 Acetaminophen (ACETAMINOPHEN) 325 Mg Tablet, 1-2 TAB PO Q4-6H Y for PAIN, TAB 04/29/17 Discontinued Scripts Omeprazole (OMEPRAZOLE) 20 Mg Capsule.dr, 1 CAP PO QODAY for 90 Days, #90 CAP 4 Refills Prov:KIRIT SHERWOOD MD 10/22/17 Cephalexin (KEFLEX) 250 Mg Capsule, 1 CAP PO DAILY, #90 CAP 3 Refills Prov:SIGIFREDO PISANO MD 02/20/17 Clobetasol Propionate (CLOBETASOL PROPIONATE) 15 Gm Oint...g., 1 MIGUEL TP BID for 10 Days, #1 TUBE 0 Refills Prov:MAXIM FARMER DNP, PROCUREMENT ANALYST-BC 03/05/18 Allergies: Coded Allergies: levofloxacin (Verified Allergy, Intermediate, Disoriented, 03/23/18) Sulfa (Sulfonamide Antibiotics) (Verified Allergy, Unknown, Hives, 03/23/18) sulfamethoxazole (Verified Allergy, Unknown, Hives, 03/23/18) tuberculin,PPD,multi-puncture (Verified Allergy, Unknown, 03/23/18) clobetasol (Verified Adverse Reaction, Unknown, Rash, 03/23/18) Patient History: FH: Alzheimers disease MOTHER, , Age:60 years and older FH: bladder cancer Brother, , Age:79 FH: diabetes mellitus MOTHER, , Age:60 years and older FH: prostate cancer Brother, , Age:79 FH: stroke FATHER, , Age:80 Smoking Status: Never Smoker Hx Alcohol Use: No Social Drug Use: Never Review of Systems All Systems Reviewed/Normal: Yes, Except as Noted Genitourinary: Urinary Incontinence Exam Vital Signs Vital Signs Date Time Temp Pulse Resp B/P (MAP) Pulse Ox O2 Delivery O2 Flow Rate FiO2 03/23/18 15:37 97.9 94 18 133/66 03/23/18 12:26 98 Nasal Cannula 3.0 General Appearance: Alert, Awake, No Acute Distress Neuro: No Gross deficits Eyes: PERRLA ENT: Normal Neck: No Masses Cardiovascular: Normal Rhythm & Peripheral Pulses (+ murmur RSB, systolic) Respiratory: No Respiratory Distress (3L NC) Chest: No Tenderness GI: Abd Soft and Non-Tender Lymph: Cervical Nodes Benign Musculoskeletal: No Weakness/Pain Extremities: Soft and Non Tender, Warm, Pulses, Perfused, No Edema Integumentary: Skin Intact without Lesion / Mass Medical Decision Making Data Points Result Diagram: 03/23/18 1028 03/23/18 1018 Assessment and Plan Problems: (1) UTI (urinary tract infection) Assessment & Plan: UA concerning for UTI. Urine culture pending. Empiric ceftriaxone 1g q24h. 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 HIV negative, no indication liver dysfunction, Hgb and WBC WNL, hepatitis panel pending, H pylori negative, peripheral smear review pending. TSH markedly depressed, appears to be over medicated with levothyroxine. No evidence hemolysis. (3) Chronic respiratory failure with hypoxia Status: Chronic Assessment & Plan: Reportedly on 3L baseline, sat 97% on 3L will titrate as able. (4) Dementia Assessment & Plan: Unclear how advanced, able to hold conversation but appears not to know anything about current medical history, denied needing O2 despite documentation of 3L baseline. (5) Obesity (BMI 30-39.9) Status: Chronic Assessment & Plan: Chronic. (6) Hypothyroidism Status: Chronic Assessment & Plan: TSH 0.03, will decrease levothyroxine by 1/2 as 250 seems overly aggressive. Venous Thromboembolism Antithrombotics Is Pt On Any Antithrombotics?: No Prophylaxis Tx Contraindicated Pharmacological Contraindicati: Low Platelet Count Exam Sepsis Risk: No Definite Risk ORTIZ MIRNA DUBOSE DO Mar 23, 2018 16:31
[2018-03-23] MEDS: traZODone HCL 50 MG TAB PO SCH (20:51)
[2018-03-23] MEDS ORDERED: RANITIDINE HCL 150 MG TAB PO SCH (21:00)
[2018-03-23] MEDS: APAP/HYDROCODONE 325/5 TAB PO PRN (23:29)
[2018-03-24 04:47] VITALS: BP 170/85
[2018-03-24] MEDS: LEVOTHYROXINE SOD 0.125 MG TAB PO SCH (05:55)
[2018-03-24 05:56] VITALS: BP 127/59
[2018-03-24 07:04] LABS: PLATELET COUNT, AUTOMATED 41 K/uL (150-450)
[2018-03-24 07:47] VITALS: BP 133/65
[2018-03-24 08:56] VITALS: Ht 162.6 cm; Wt 83.0 kg
[2018-03-24] MEDS: cefTRIAXone 1 GM VIAL IVP SCH (09:24)
[2018-03-24] MEDS: DULoxetine HCL 20 MG CAPCR PO SCH (09:24)
[2018-03-24 12:10] VITALS: BP 135/67
--- NOTE | 2018-03-24 13:09 | Hospitalist Progress Note ---
Subjective Progress Notes Subjective She denies bleeding from her gums or easy bruising. No complaints. Physical Exam Vital Signs Date Time Temp Pulse Resp B/P (MAP) Pulse Ox O2 Delivery O2 Flow Rate FiO2 03/24/18 12:10 98.5 94 20 135/67 (89) 96 Nasal Cannula 2.5 Intake and Output 03/25/18 07:00 Intake Total 0 ml Balance 0 ml Intake Oral 0 ml # Voids 1 General Appearance: Alert, Awake, No Acute Distress GI: Soft and Non-Tender Result Diagram: 03/24/1852403/24/18524 Assessment and Plan Problems: (1) UTI (urinary tract infection) Assessment & Plan: UA concerning for UTI. Urine culture pending. Afebrile. Empiric ceftriaxone 1g q24h. (2) Thrombocytopenia Assessment & Plan: No evidence of bleeding. 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 HIV negative, no indication liver dysfunction, Hgb and WBC WNL, hepatitis panel pending, H pylori negative, peripheral smear review pending. TSH markedly depressed, appears to be over medicated with levothyroxine. No evidence hemolysis. The pathologist is reviewing the peripheral smear. She was given 2 units of platelets and her count is up from 28k to 41k. (3) Chronic respiratory failure with hypoxia Status: Chronic Assessment & Plan: Reportedly on 3L baseline, sat 97% on 3L will titrate as able. (4) Dementia Assessment & Plan: Unclear how advanced, able to hold conversation but appears not to know anything about current medical history, denied needing O2 despite documentation of 3L baseline. (5) Obesity (BMI 30-39.9) Status: Chronic Assessment & Plan: Chronic. (6) Hypothyroidism Status: Chronic Assessment & Plan: TSH 0.03, will decrease levothyroxine by 1/2 as 250 seems overly aggressive. Exam Sepsis Risk: No Definite Risk OLESYA HUA MD Mar 24, 2018 13:09
[2018-03-24 15:15] VITALS: BP 148/68
[2018-03-24 18:47] VITALS: BP 143/81
[2018-03-24] MEDS: traZODone HCL 50 MG TAB PO SCH (20:34)
[2018-03-24] MEDS: APAP/HYDROCODONE 325/5 TAB PO PRN (20:35)
[2018-03-24] MEDS ORDERED: RANITIDINE HCL 150 MG TAB PO SCH (21:00)
[2018-03-25 02:33] VITALS: BP 172/90
[2018-03-25] MEDS: LEVOTHYROXINE SOD 0.125 MG TAB PO SCH (06:22)
[2018-03-25 06:58] VITALS: BP 140/68
[2018-03-25 07:02] LABS: PLATELET COUNT, AUTOMATED 49 K/uL (150-450)
[2018-03-25] MEDS: DULoxetine HCL 20 MG CAPCR PO SCH (09:26)
[2018-03-25] MEDS: cefTRIAXone 1 GM VIAL IVP SCH (09:27)
[2018-03-25] MEDS ORDERED: CEPH250C37 PO (10:27)
--- NOTE | 2018-03-25 10:31 | Hospitalist Depart ---
Discharge Summary Reason for Hosp/Final Diag: (1) UTI (urinary tract infection) Hospital Course & Plan: Her urine culture did grow E. coli. She received several doses of ceftriaxone and will discharge to complete a course of oral Keflex. (2) Thrombocytopenia Hospital Course & Plan: The etiology of this is unclear. She did receive 2 units of platelets and her counts have been correcting. She will need to follow up with hematology. (3) Chronic respiratory failure with hypoxia Status: Chronic Hospital Course & Plan: She is on chronic home oxygen therapy. (4) Dementia (5) Obesity (BMI 30-39.9) Status: Chronic Hospital Course & Plan: Chronic. (6) Hypothyroidism Status: Chronic Hospital Course & Plan: Her TSH was noted to be suppressed. We did decrease her Synthroid dose. She will need a repeat TSH in 4-6 weeks. Departure Latest Vital Signs Vital Signs 03/25/18 06:58 Temp 97.8 Pulse 83 Resp 16 B/P (MAP) 140/68 (92) Pulse Ox 96 O2 Delivery Nasal Cannula O2 Flow Rate 2.0 Weight (Pounds): 183 Weight (Ounces): 7.0 Result Diagram: 03/25/1853003/25/18530 Condition: Improved Discharge: Assisted Living Discharge Code Status: DNR, DNI Discharge Instructions Home Meds Active Scripts Levothyroxine Sodium (LEVOTHYROXINE SODIUM) 0.125 Mg Tab, 0.125 MG PO QDAY@06, # 30 TAB Prov:ALYX JORGE DO 03/25/18 Cephalexin (KEFLEX) 250 Mg Capsule, 250 MG PO Q6H, #20 CAP Prov:LUISITOALYX STAHL DO 03/25/18 Diphenhydramine Hcl/Zinc Acet (BENADRYL ITCH STOPPING CRM) 28.3 Gm Cream..g., 1 MIGUEL TP QID Y for ITCHING, #1 BOT 1 Refill Prov:MAXIM FARMER DNP, CHIROPRACTOR ASSISTANT-BC 03/17/18 Duloxetine Hcl (CYMBALTA) 20 Mg Capcr, 2 TAB PO QDAY for 30 Days, #60 CAP 11 Refills Prov:KIRIT SHERWOOD MD 02/16/18 Hydrocodone Bit/Acetaminophen (HYDROCODON-ACETAMINOPHEN 5-325) 1 Each Tablet, 0.5 EACH PO BID Y for pain for 30 Days, #30 TAB Prov:KIRIT SHERWOOD MD 02/09/18 Polyethylene Glycol 3350 (MIRALAX) 119 Gm Powder, 17 GM PO DAILY for 30 Days, # 1 BOTTLE 11 Refills Add 17gm of miralax to juice or water daily. Hold dose if diarrhea. Prov:KIRIT SHERWOOD MD 02/04/18 Trazodone Hcl (TRAZODONE HCL) 50 Mg Tablet, 25 MG PO QHS, #90 TAB 3 Refills Prov:KIRIT SHERWOOD MD 02/03/18 Melatonin (MELATONIN) 10 Mg Capsule, 1 CAP PO QHS for 90 Days, #90 CAPSULE 4 Refills Prov:KIRIT SHERWOOD MD 01/19/18 Ranitidine Hcl (RANITIDINE HCL) 150 Mg Capsule, 1 CAP PO QHS for 90 Days, #90 CAPSULE 4 Refills Prov:KIRIT SHERWOOD MD 01/19/18 Acetaminophen (TYLENOL EXTRA STRENGTH) 500 Mg Tablet, 2 TAB PO BID for 90 Days, #360 TAB 4 Refills Prov:KIRIT SHERWOOD MD 01/04/18 Diclofenac Sodium 1% Gel (VOLTAREN 1% GEL) 100 Gm Gel..gram., 2 GM TOP QID for 30 Days, #1 TUBE 3 Refills Prov:KIRIT SHERWOOD MD 12/01/17 Incontinence Pad,Liner,Disp (UNDERPAD) 1 Each Each, PACK MC HS, #1 11 Refills Pack of 30 plus 11 refills Use 1 incontinence pad under pateint per night length of need: 99 months Prov:KIRIT SHERWOOD MD 11/10/17 Diaper,Brief,Adult,Disposable (OVERNIGHT BRIEFS) 1 Each Each, PACK MC HS, #1 11 Refills Pack of #30 plus 11 refills use 1 brief per night Length of need: 99 months Prov:KIRIT SHERWOOD MD 11/10/17 Cholecalciferol (Vitamin D3) (VITAMIN D3) 2,000 Unit Tablet, 1 TAB PO DAILY, # 180 TAB 3 Refills Prov:KIRIT SHERWOOD MD 07/22/17 Lactobacillus Rhamnosus Gg (CULTURELLE) 1 Each Capsule, 1 EACH PO DIRECTED, # 90 CAPSULE 4 Refills As directed on package. Prov:KIRIT SHERWOOD MD 07/06/17 Aspirin (ASPIRIN) 325 Mg Tablet, 1 TAB PO Q4-6H Y for PAIN, #90 TAB 3 Refills Prov:SIGIFREDO PISANO MD 11/25/16 Neomycin/Polymyxin B Sulf/Hc (Cortisporin [DSC] EAR SOLN) 10 Ml Solution, 2 DROP OT PRN, #1 BOT 3 Refills Prov:SIGIFREDO PISANO MD 11/25/16 Albuterol Sulfate 90 Mcg/Act (PROAIR HFA 90 MCG/ACT) 8.5 Gm Hfa.aer.ad, 2 PUFF IH Q4-6H Y for WHEEZING, #3 INHALER 3 Refills Prov:SIGIFREDO PISANO MD 11/25/16 Reported Medications Meloxicam (MELOXICAM) 7.5 Mg Tablet, 7.5 MG PO QDAY 03/23/18 Oxygen (OXYGEN) Inha, 3 L INH, L 11/25/16 Discontinued Reported Medications Vit A/Vit C/Vit E/Zinc/Copper (PRESERVISION AREDS TABLET) 1 Each Tablet, PO 07/22/17 Acetaminophen (ACETAMINOPHEN) 325 Mg Tablet, 1-2 TAB PO Q4-6H Y for PAIN, TAB 04/29/17 Discontinued Scripts Levothyroxine Sodium (LEVOTHYROXINE SODIUM) 0.125 Mg Tab, 2 TAB PO QDAY for 90 Days, #180 TAB 3 Refills Prov:KIRIT SHERWOOD MD 07/15/17 Omeprazole (OMEPRAZOLE) 20 Mg Capsule.dr, 1 CAP PO QODAY for 90 Days, #90 CAP 4 Refills Prov:KIRIT SHERWOOD MD 10/22/17 Cephalexin (KEFLEX) 250 Mg Capsule, 1 CAP PO DAILY, #90 CAP 3 Refills Prov:SIGIFREDO PISANO MD 02/20/17 Diet: Regular Activity: As Tolerated Copies to: KIRIT SHERWOOD MD Venous Thromboembolism Antithrombotics Is Pt On Any Antithrombotics?: No ALYX JORGE DO Mar 25, 2018 10:31
[2018-03-25] MEDS ORDERED: LEV125 PO (10:32)
[2018-03-25 11:38] VITALS: BP 127/82
== END 2018-03-25 13:45 | disposition home or self-care (01) | DRG 690 ==
LOC: ER 09:35 → MED 11:47
PROVIDERS: ADMIT Internal Medicine; ATTEND Internal Medicine
PROC: 30233R1 Transfusion of Nonautologous Platelets into Peripheral Vein, Percutaneous Approach (ICD-10-PCS; principal; 2018-03-23)
DX: N39.0 Urinary tract infection, site not specified (principal); J96.11 Chronic respiratory failure with hypoxia; I50.32 Chronic diastolic (congestive) heart failure; D69.3 Immune thrombocytopenic purpura; I11.0 Hypertensive heart disease with heart failure; E66.9 Obesity, unspecified; K21.9 Gastro-esophageal reflux disease without esophagitis; F41.9 Anxiety disorder, unspecified; B96.20 Unspecified Escherichia coli [E. coli] as the cause of diseases classified elsewhere; F03.90 Unspecified dementia, unspecified severity, without behavioral disturbance, psychotic disturbance, mood disturbance, and anxiety; E21.3 Hyperparathyroidism, unspecified; E03.9 Hypothyroidism, unspecified; Z68.31 Body mass index [BMI] 31.0-31.9, adult; Z88.2 Allergy status to sulfonamides; Z88.8 Allergy status to other drugs, medicaments and biological substances; Z90.710 Acquired absence of both cervix and uterus; Z90.49 Acquired absence of other specified parts of digestive tract
CPT/HCPCS: 36415; 81001; 82040; 82247; 82310; 82374; 82435; 82565; 82607; 82746; 82947; 82977; 84075; 84132; 84155; 84295; 84443; 84450; 84460; 84520; 85007; 85025; 85027; 85610; 85730; 86677; 86703; 86704; 86705; 86706; 86708; 86709; 86803; 86850; 86900; 86901; 87077; 87088; 87186; 87340; 97161; 97165; A4353; J0696; J3535; J7050; P9035

== ENCOUNTER → 2018-03-23 | Outpatient (REF) | payer MEDICARE, MEDICAID ==
[~2018-03-23] MED LIST changes: +MELO-205 PO; +[UNRECOGNIZED DRUG - CODE] TP
== END ==
LOC: ZZSPRING 08:24
PROVIDERS: ATTEND Family Medicine
DX: E03.9 Hypothyroidism, unspecified (principal); M79.81 Nontraumatic hematoma of soft tissue
CPT/HCPCS: 36415; 82040; 82247; 82310; 82374; 82435; 82565; 82947; 84075; 84132; 84155; 84295; 84443; 84450; 84460; 84520; 85027

== ENCOUNTER 2018-04-06 09:28 | Emergency (ER) | payer MEDICARE, MEDICAID ==
[2018-03-24 08:56] VITALS: Wt 83.2 kg
--- NOTE | 2018-04-06 10:19 | ER Report ---
History and Physical Time Seen By MD: 09:59 Hx. of Stated Complaint: PT REFERRED FROM CLINIC FOR LOW PLATELETS, [facility] [place]. PT STATES SHE FEELS FINE HPI/ROS CHIEF COMPLAINT: Low platelet count HISTORY OF PRESENT ILLNESS: Patient is a pleasant 87-year-old female with history of advanced dementia who was referred to the emergency Department from her primary care provider for low platelet count found on routine lab screening of 26,000. Patient is otherwise asymptomatic. She is not on any antiplatelet agents or anticoagulants that we are aware of. Patient's power of qualitative field coordinator is her daughter. She is a DO NOT RESUSCITATE. However she is requesting that we evaluate and treat for low platelet count. The patient herself is pleasant offers no complaints. No history of bloody stools or tarry stools. No history of unexpected bruising. Patient is on trazodone 25 mg which is recently increased to 50 mg for sleep problems. This potentially could be a source of thrombocytopenia however this developed prior to the increase in her usual dose. I have talked to the patient's primary care provider plan at this time will be to transfuse platelets do a medical workup and if negative we will discharge back to nursing care she has no point with hematology in 48 hours. REVIEW OF SYSTEMS: Respiratory: No cough, no dyspnea. Cardiovascular: No chest pain, no palpitations. Gastrointestinal: No vomiting, no abdominal pain. Musculoskeletal: No back pain. Allergies: Coded Allergies: levofloxacin (Verified Allergy, Intermediate, Disoriented, 03/23/18) Sulfa (Sulfonamide Antibiotics) (Verified Allergy, Unknown, Hives, 03/23/18) sulfamethoxazole (Verified Allergy, Unknown, Hives, 03/23/18) tuberculin,PPD,multi-puncture (Verified Allergy, Unknown, 03/23/18) clobetasol (Verified Adverse Reaction, Unknown, Rash, 03/23/18) Home Meds Active Scripts Trazodone Hcl (TRAZODONE HCL) 50 Mg Tablet, 1 TAB PO QHS, #90 TAB 3 Refills Prov:LAWANDA SHERWOOD MD 03/29/18 Levothyroxine Sodium (LEVOTHYROXINE SODIUM) 0.125 Mg Tab, 0.125 MG PO QDAY@06, # 30 TAB Prov:ALYX JORGE DO 03/25/18 Cephalexin (KEFLEX) 250 Mg Capsule, 250 MG PO Q6H, #20 CAP Prov:ALYX JORGE 03/25/18 Diphenhydramine Hcl/Zinc Acet (BENADRYL ITCH STOPPING CRM) 28.3 Gm Cream..g., 1 MIGUEL TP QID Y for ITCHING, #1 BOT 1 Refill Prov:MAXIM FARMER DNP, COMMERCIAL HVAC TECHNICIAN-BC 03/17/18 Duloxetine Hcl (CYMBALTA) 20 Mg Capcr, 2 TAB PO QDAY for 30 Days, #60 CAP 11 Refills Prov:LAWANDA SHERWOOD MD 02/16/18 Hydrocodone Bit/Acetaminophen (HYDROCODON-ACETAMINOPHEN 5-325) 1 Each Tablet, 0.5 EACH PO BID Y for pain for 30 Days, #30 TAB Prov:LAWANDA SHERWOOD MD 02/09/18 Polyethylene Glycol 3350 (MIRALAX) 119 Gm Powder, 17 GM PO DAILY for 30 Days, # 1 BOTTLE 11 Refills Add 17gm of miralax to juice or water daily. Hold dose if diarrhea. Prov:LAWANDA SHERWOOD MD 02/04/18 Melatonin (MELATONIN) 10 Mg Capsule, 1 CAP PO QHS for 90 Days, #90 CAPSULE 4 Refills Prov:LAWANDA SHERWOOD MD 01/19/18 Ranitidine Hcl (RANITIDINE HCL) 150 Mg Capsule, 1 CAP PO QHS for 90 Days, #90 CAPSULE 4 Refills Prov:LAWANDA SHERWOOD MD 01/19/18 Acetaminophen (TYLENOL EXTRA STRENGTH) 500 Mg Tablet, 2 TAB PO BID for 90 Days, #360 TAB 4 Refills Prov:LAWANDA SHERWOOD MD 01/04/18 Diclofenac Sodium 1% Gel (VOLTAREN 1% GEL) 100 Gm Gel..gram., 2 GM TOP QID for 30 Days, #1 TUBE 3 Refills Prov:LAWANDA SHERWOOD MD 12/01/17 Incontinence Pad,Liner,Disp (UNDERPAD) 1 Each Each, PACK MC HS, #1 11 Refills Pack of 30 plus 11 refills Use 1 incontinence pad under pateint per night length of need: 99 months Prov:LAWANDA SHERWOOD MD 11/10/17 Diaper,Brief,Adult,Disposable (OVERNIGHT BRIEFS) 1 Each Each, PACK MC HS, #1 11 Refills Pack of #30 plus 11 refills use 1 brief per night Length of need: 99 months Prov:LAWANDA SHERWOOD MD 11/10/17 Cholecalciferol (Vitamin D3) (VITAMIN D3) 2,000 Unit Tablet, 1 TAB PO DAILY, # 180 TAB 3 Refills Prov:LAWANDA SHERWOOD MD 07/22/17 Lactobacillus Rhamnosus Gg (CULTURELLE) 1 Each Capsule, 1 EACH PO DIRECTED, # 90 CAPSULE 4 Refills As directed on package. Prov:LAWANDA SHERWOOD MD 07/06/17 Aspirin (ASPIRIN) 325 Mg Tablet, 1 TAB PO Q4-6H Y for PAIN, #90 TAB 3 Refills Prov:SIGIFREDO PISANO MD 11/25/16 Neomycin/Polymyxin B Sulf/Hc (Cortisporin [DSC] EAR SOLN) 10 Ml Solution, 2 DROP OT PRN, #1 BOT 3 Refills Prov:SIGIFREDO PISANO MD 11/25/16 Albuterol Sulfate 90 Mcg/Act (PROAIR HFA 90 MCG/ACT) 8.5 Gm Hfa.aer.ad, 2 PUFF IH Q4-6H Y for WHEEZING, #3 INHALER 3 Refills Prov:SIGIFREDO PISANO MD 11/25/16 Reported Medications Oxygen (OXYGEN) Inha, 3 L INH, L 11/25/16 Discontinued Reported Medications Meloxicam (MELOXICAM) 7.5 Mg Tablet, 7.5 MG PO QDAY 03/23/18 Past Medical/Surgical History Past medical history for migraine, stroke in 2016 with rehabilitation, history of macular degeneration, hypertension, pneumonia, sleep apnea, GERD, diverticulosis, osteopenia, anxiety, depression, hypoparathyroidism, hypothyroidism, history of hysterectomy, parathyroidectomy, thyroid surgery Smoking Status: Never Smoker Hx Substance Use Disorder: Yes (OPIOID DEPENDENCE) Hx Alcohol Use: No Constitutional Vital Sign - Last 24 Hours 04/06/18 04/06/18 04/06/18 04/06/18 09:28 09:34 09:35 09:58 Temp 97.8 Pulse ??? 71 69 Resp 20 19 B/P (MAP) 137/74 137/74 (95) Pulse Ox 95 96 O2 Delivery Nasal Cannula 04/06/18 04/06/18 04/06/18 10:21 10:28 10:30 Pulse 70 Resp 14 B/P (MAP) 128/62 (84) 123/70 (87) Pulse Ox 96 Physical Exam General Appearance: The patient is alert, has no immediate need for airway protection and no signs of toxicity. Eyes: Pupils equal and round no pallor or injection. ENT, Mouth: Mucous membranes are moist. Respiratory: There are no retractions, lungs are clear to auscultation. Cardiovascular: Regular rate and rhythm. Gastrointestinal: Abdomen is soft and non tender, no masses, bowel sounds normal. Neurological: Awake, pleasantly demented only oriented to person Skin: Warm and dry, no rashes. Musculoskeletal: Neck is supple non tender. Extremities are nontender, nonswollen and have full range of motion. Medical Decision Making Data Points Result Diagram: 04/06/18 1020 04/06/18 1020 Laboratory Hematology Test 04/06/18 10:20 04/06/18 11:00 Red Blood Count 5.44 M/uL (4.17-5.56) Mean Corpuscular Volume 78.2 fL (80.0-96.0) Mean Corpuscular Hemoglobin 26.7 pg (26.0-33.0) Mean Corpuscular Hemoglobin Concent 34.1 g/dL (32.0-36.0) Red Cell Distribution Width 15.1 % (11.5-14.5) Mean Platelet Volume 9.3 fL (7.2-11.1) Neutrophils (%) (Auto) 74.9 % (39.4-72.5) Lymphocytes (%) (Auto) 19.1 % (17.6-49.6) Monocytes (%) (Auto) 5.8 % (4.1-12.4) Eosinophils (%) (Auto) 0.0 % (0.4-6.7) Basophils (%) (Auto) 0.2 % (0.3-1.4) Nucleated RBC Relative Count (auto) 0.0 /100WBC Neutrophils # (Auto) 5.7 K/uL (2.0-7.4) Lymphocytes # (Auto) 1.4 K/uL (1.3-3.6) Monocytes # (Auto) 0.4 K/uL (0.3-1.0) Eosinophils # (Auto) 0.0 K/uL (0.0-0.5) Basophils # (Auto) 0.0 K/uL (0.0-0.1) Nucleated RBC Absolute Count (auto) 0.00 K/uL Prothrombin Time 13.9 seconds (12.0-14.4) Prothromb Time International Ratio 1.07 Activated Partial Thromboplast Time 39 seconds (23-35) Sodium Level 139 mmol/L (137-145) Potassium Level 4.5 mmol/L (3.5-5.0) Chloride Level 99 mmol/L (98-107) Carbon Dioxide Level 25 mmol/L (22-31) Blood Urea Nitrogen 16 mg/dl (7-18) Creatinine 0.90 mg/dl (0.52-1.04) Glomerular Filtration Rate Calc 59.5 Random Glucose 130 mg/dl (75-110) Calcium Level 9.6 mg/dl (8.4-10.2) Total Bilirubin 0.5 mg/dl (0.2-1.3) Aspartate Amino Transf (AST/SGOT) 32 U/L (0-35) Alanine Aminotransferase (ALT/SGPT) 30 U/L (0-56) Alkaline Phosphatase 91 U/L (0-126) Total Protein 8.8 g/dl (6.3-8.2) Albumin 4.7 g/dl (3.5-5.0) Urine Color Faby Urine Clarity Slightly-cloudy Urine pH 5.0 pH (4.8-9.5) Urine Specific Gilbert 1.018 Urine Protein Negative mg/dL (NEGATIVE) Urine Glucose (UA) Negative mg/dL (NEGATIVE) Urine Ketones Negative mg/dL (NEGATIVE) Urine Blood Negative (NEGATIVE) Urine Nitrite Negative (NEGATIVE) Urine Bilirubin Negative (NEGATIVE) Urine Urobilinogen Negative mg/dL (0.2-1.9) Urine Leukocyte Esterase Trace (NEGATIVE) Urine RBC None /HPF (0-2/HPF) Urine WBC 9 /HPF (0-5/HPF) Urine Squamous Epithelial Cells Few /LPF (NONE-FEW) Urine Bacteria Few /HPF (NONE-FEW) Urine Hyaline Casts Few /LPF (NONE-FEW) Urine Mucus None /HPF (NONE-FEW) Chemistry Test 04/06/18 10:20 04/06/18 11:00 White Blood Count 7.6 k/uL (4.5-11.0) Red Blood Count 5.44 M/uL (4.17-5.56) Hemoglobin 14.5 g/dL (12.0-16.0) Hematocrit 42.5 % (34.0-47.0) Mean Corpuscular Volume 78.2 fL (80.0-96.0) Mean Corpuscular Hemoglobin 26.7 pg (26.0-33.0) Mean Corpuscular Hemoglobin Concent 34.1 g/dL (32.0-36.0) Red Cell Distribution Width 15.1 % (11.5-14.5) Platelet Count 33 K/uL (150-450) Mean Platelet Volume 9.3 fL (7.2-11.1) Neutrophils (%) (Auto) 74.9 % (39.4-72.5) Lymphocytes (%) (Auto) 19.1 % (17.6-49.6) Monocytes (%) (Auto) 5.8 % (4.1-12.4) Eosinophils (%) (Auto) 0.0 % (0.4-6.7) Basophils (%) (Auto) 0.2 % (0.3-1.4) Nucleated RBC Relative Count (auto) 0.0 /100WBC Neutrophils # (Auto) 5.7 K/uL (2.0-7.4) Lymphocytes # (Auto) 1.4 K/uL (1.3-3.6) Monocytes # (Auto) 0.4 K/uL (0.3-1.0) Eosinophils # (Auto) 0.0 K/uL (0.0-0.5) Basophils # (Auto) 0.0 K/uL (0.0-0.1) Nucleated RBC Absolute Count (auto) 0.00 K/uL Prothrombin Time 13.9 seconds (12.0-14.4) Prothromb Time International Ratio 1.07 Activated Partial Thromboplast Time 39 seconds (23-35) Glomerular Filtration Rate Calc 59.5 Calcium Level 9.6 mg/dl (8.4-10.2) Total Bilirubin 0.5 mg/dl (0.2-1.3) Aspartate Amino Transf (AST/SGOT) 32 U/L (0-35) Alanine Aminotransferase (ALT/SGPT) 30 U/L (0-56) Alkaline Phosphatase 91 U/L (0-126) Total Protein 8.8 g/dl (6.3-8.2) Albumin 4.7 g/dl (3.5-5.0) Urine Color Faby Urine Clarity Slightly-cloudy Urine pH 5.0 pH (4.8-9.5) Urine Specific Gilbert 1.018 Urine Protein Negative mg/dL (NEGATIVE) Urine Glucose (UA) Negative mg/dL (NEGATIVE) Urine Ketones Negative mg/dL (NEGATIVE) Urine Blood Negative (NEGATIVE) Urine Nitrite Negative (NEGATIVE) Urine Bilirubin Negative (NEGATIVE) Urine Urobilinogen Negative mg/dL (0.2-1.9) Urine Leukocyte Esterase Trace (NEGATIVE) Urine RBC None /HPF (0-2/HPF) Urine WBC 9 /HPF (0-5/HPF) Urine Squamous Epithelial Cells Few /LPF (NONE-FEW) Urine Bacteria Few /HPF (NONE-FEW) Urine Hyaline Casts Few /LPF (NONE-FEW) Urine Mucus None /HPF (NONE-FEW) Coagulation Test 04/06/18 10:20 Prothrombin Time 13.9 seconds Prothromb Time International Ratio 1.07 Activated Partial Thromboplast Time 39 seconds Urinalysis Test 04/06/18 11:00 Urine Color Faby Urine Clarity Slightly-cloudy Urine pH 5.0 pH (4.8-9.5) Urine Specific Gilbert 1.018 Urine Protein Negative mg/dL (NEGATIVE) Urine Glucose (UA) Negative mg/dL (NEGATIVE) Urine Ketones Negative mg/dL (NEGATIVE) Urine Blood Negative (NEGATIVE) Urine Nitrite Negative (NEGATIVE) Urine Bilirubin Negative (NEGATIVE) Urine Urobilinogen Negative mg/dL (0.2-1.9) Urine Leukocyte Esterase Trace (NEGATIVE) Urine RBC None /HPF (0-2/HPF) Urine WBC 9 /HPF (0-5/HPF) Urine Squamous Epithelial Cells Few /LPF (NONE-FEW) Urine Bacteria Few /HPF (NONE-FEW) Urine Hyaline Casts Few /LPF (NONE-FEW) Urine Mucus None /HPF (NONE-FEW) EKG/Imaging Imaging FACILITY: [facility] PATIENT NAME: Judie Perez : 1930 MR: [id number] V: [id number] EXAM DATE: ORDERING PHYSICIAN: AJAY MARKHAM TECHNOLOGIST: Location: [facility] [place] Patient: Judie Perez : 1930 Visit/Account:[id number] Date of Sevice: 04/06/[address] scan without contrast HISTORY: Low platelets COMPARISONS: January 01, 2017 TECHNIQUE: Non-contrast head CT was performed with sagittal and coronal reformations. One of the following dose optimization techniques was utilized in the performance of this exam: automated exposure control; adjustment of the mA and/ or kV according to patient size; or use of iterative reconstruction technique. Specific details can be referenced in the facility's radiology CT exam operational policy. FINDINGS: There is no intracranial hemorrhage, hydrocephalus or midline shift. The basal cisterns, wilder-white differentiation, and convexity sulci are maintained. Normal orbital soft tissues. Unchanged left lateral frontal region dural calcification versus calcified meningioma measuring up to 8.5 mm. Unchanged chronic bilateral cerebellar infarcts versus sulci mimicking chronic infarcts. Unchanged confluent white matter hypoattenuation. The mastoid air cells are clear. The paranasal sinuses are clear. A few unchanged small osseous lucencies which are favored to be benign given stability. IMPRESSION: No acute intracranial abnormality. Unchanged 8.5 mm left frontal region dural calcification versus calcified meningioma. Multiple unchanged osseous lucencies within the skull which are favored to be benign given stability. Multiple myeloma cannot be entirely excluded as before. Report Dictated By: Fady Conn MD at 04/06/2018 11:38 AM Report E-Signed By: Fady Conn MD at 04/06/2018 11:43 AM WSN:[email or web address] ED Course/Re-evaluation ED Course 04/06/2018 12:36:32 pm patient with asymptomatic thrombocytopenia. Workup in the emergency department is unremarkable with the exception of a platelet count of 33,000. I had a discussion with patient's primary care provider Dr. Lawanda Sherwood as well as the patient's daughter who is the patient's power of qualitative field coordinator. Patient is scheduled to see hematology for her chronic thrombocytopenia on . Patient herself is symptom free. Plan at this time will be to transfuse 2 units of platelets and have her follow up with hematology. Workup in the emergency department is unremarkable including CT of the head coag panel and blood work. Decision to Disposition Date: Apr 06, 2018 Decision to Disposition Time: 12:50 Depart Departure Latest Vital Signs Vital Signs Date Time Temp Pulse Resp B/P (MAP) Pulse Ox O2 Delivery O2 Flow Rate FiO2 04/06/18 10:30 123/70 (87) 04/06/18 10:28 70 14 96 04/06/18 09:34 97.8 Nasal Cannula Impression: Primary Impression: Thrombocytopenia Condition: Improved Referrals: LAWANDA SHERWOOD MD (PCP) Patient Instructions: Thrombocytopenia (ED) Additional Instructions: Patient will be transferred to the transfusion center to get her transfusion of 2 units of platelets. She will then be discharged home and follow up with hematology in 48 hours AJAY MARKHAM MD Apr 06, 2018 10:19
[2018-04-06 10:36] LABS: PLATELET COUNT, AUTOMATED 33 K/uL (150-450)
[2018-04-06 10:41] LABS: INR 1.07
--- NOTE | 2018-04-06 11:47 | RADIOLOGY IMAGING REPORT ---
FACILITY: [facility] PATIENT NAME: Judie Perez : 1930 MR: [id number] V: [id number] EXAM DATE: ORDERING PHYSICIAN: AJAY MARKHAM TECHNOLOGIST: Location: [facility] Patient: Judie Perez : 1930 Visit/Account:[id number] Date of Sevice: 04/06/[address] scan without contrast HISTORY: Low platelets COMPARISONS: January 01, 2017 TECHNIQUE: Non-contrast head CT was performed with sagittal and coronal reformations. One of the following dose optimization techniques was utilized in the performance of this exam: autom ated exposure control; adjustment of the mA and/or kV according to patient size; or use of iterative reconstruction technique. Specific details can be referenced in the facility's radiology CT exam ope rational policy. FINDINGS: There is no intracranial hemorrhage, hydrocephalus or midline shift. The basal cisterns, wilder-white differentiation, and convexity sulci are maintained. Normal orbital soft tissues. Unchanged left late ral frontal region dural calcification versus calcified meningioma measuring up to 8.5 mm. Unchanged chronic bilateral cerebellar infarcts versus sulci mimicking chronic infarcts. Unchanged confluent wh ite matter hypoattenuation. The mastoid air cells are clear. The paranasal sinuses are clear. A few unchanged small osseous luce ncies which are favored to be benign given stability. IMPRESSION: No acute intracranial abnormality. Unchanged 8.5 mm left frontal region dural calcification versus calcified meningioma. Multiple unchanged osseous lucencies within the skull which are favored to be benign given stability. Multiple myeloma cannot be entirely excluded as before. Report Dictated By: Fady Conn MD at 04/06/2018 11:38 AM Report E-Signed By: Fady Conn MD at 04/06/2018 11:43 AM WSN:[id number]
[2018-04-06 12:00] VITALS: BP 125/68
== END 2018-04-06 12:43 | disposition home or self-care (01) ==
LOC: ER 09:33
DX: D69.6 Thrombocytopenia, unspecified (principal); Z79.82 Long term (current) use of aspirin; I10 Essential (primary) hypertension; F41.9 Anxiety disorder, unspecified; F32.9 Major depressive disorder, single episode, unspecified; E20.9 Hypoparathyroidism, unspecified; Z86.73 Personal history of transient ischemic attack (TIA), and cerebral infarction without residual deficits
CPT/HCPCS: 70450; 81001; 85025; 85610; 85730; 87088; 99284; A4353; 82040; 82247; 82310; 82374; 82435; 82565; 82947; 84075; 84132; 84155; 84295; 84450; 84460; 84520

== ENCOUNTER → 2018-04-06 | Outpatient (CLI) | payer MEDICARE, MEDICAID ==
[2018-03-24 08:56] VITALS: BMI 31.4
[~2018-04-06] MED LIST changes: +MELO-205 PO
[2018-04-06 14:28] VITALS: BP 154/80
[2018-04-06 14:34] VITALS: BP 154/80
[2018-04-06 14:59] VITALS: BP 154/80
[2018-04-06 15:12] VITALS: BP 160/60
[2018-04-06 15:53] VITALS: BP 151/73
[2018-04-06 16:07] VITALS: BP 150/90
== END ==
LOC: SPU 13:16
PROVIDERS: ATTEND Emergency Medicine
DX: D69.6 Thrombocytopenia, unspecified (principal)
CPT/HCPCS: 36415; 86850; 86900; 86901; P9035

== ENCOUNTER → 2018-04-06 | Outpatient (CLI) | payer MEDICARE, MEDICAID ==
[2018-03-24 08:56] VITALS: BMI 31.4
== END ==
LOC: ZZSPRING 02:29
PROVIDERS: ATTEND Family Medicine
DX: E03.9 Hypothyroidism, unspecified (principal); I10 Essential (primary) hypertension
CPT/HCPCS: 36415; 82040; 82247; 82310; 82374; 82435; 82565; 82947; 84075; 84132; 84155; 84295; 84450; 84460; 84520; 85027

== ENCOUNTER 2018-04-08 12:03 | Outpatient (RCR) | payer MEDICARE, MEDICAID ==
[~2018-04-08 12:03] MED LIST changes: +AMLO-111 PO; -AMLO-96 PO; -HYDR-4308 PO; +HYDR-654 PO
[2018-04-08 12:28] VITALS: BP 143/83
[2018-04-08 14:21] LABS: PLATELET COUNT, AUTOMATED 59 K/uL (150-450)
--- NOTE | 2018-04-08 18:54 | ONCOLOGY CONSULTATION ---
EVENT DATE: April 08, 2018 REFERRING PHYSICIAN Lawanda Arroyo MD REASON FOR CONSULTATION Evaluation and management of thrombocytopenia. HEMATOLOGY HISTORY Patient is an 87-year-old female who was found to have lately thrombocytopenia. On reviewing her chart, her platelet count was normal until December 22, 2017 when it was 220,000. She dropped her platelet count on March 23, 2018 when the platelet count was 23,000. Patient also had a CT abdomen done on November 24, 2017 which showed focal splenic artery calcifications. PAST MEDICAL HISTORY 1. Migraine. 2. Neuropathy. 3. Stroke. 4. Sjogren syndrome. 5. Macular degeneration. 6. Hypertension. 7. History of pneumonia. 8. Sleep apnea. 9. Diverticulosis. 10. GERD. 11. Urinary incontinence. 12. Osteoporosis. 13. Anxiety, depression. 14. Hyperparathyroidism. 15. Hypothyroidism. PAST SURGICAL HISTORY 1. Appendectomy. 2. Hysterectomy. 3. Parathyroidectomy. 4. Thyroidectomy. FAMILY HISTORY Brother had some sort of cancer, but she does not know exactly the type. SOCIAL HISTORY The patient is with three children. She is retired from secretarial work. She is a never smoker. Never drinks alcohol. No abuse of illicit drugs. CURRENT MEDICATIONS 1. Trazodone 50 mg at bedtime. 2. Levothyroxine 0.125 mg tablet. 3. Benadryl cream. 4. Cymbalta 20 mg two tablets daily. 5. MiraLax 119 g powder. 6. Melatonin 10 mg capsule at bedtime. 7. Ranitidine 150 mg daily at bedtime. 8. Albuterol two puffs by inhalation every 4-6 hours p.r.n. 9. Cortisporin which is neomycin polymyxin B two drops as needed. 10. Aspirin 325 mg every 4-6 hours p.r.n. for pain. 11. Lactobacillus rhamnosus one capsule daily. 12. Cholecalciferol/vitamin D3 2000 units tablet daily. 13. Voltaren 1% gel topically four times daily. 14. Acetaminophen 500 mg tablet two tablets orally twice daily. ALLERGIES SULFA which caused itching. REVIEW OF SYSTEMS CONSTITUTIONAL: No appetite or weight change. No fever, chills. She has sweating. No recent infection. HEENT: Ears: No tinnitus or hearing problem. Nose: No nasal discharge or epistaxis. Throat: No sore throat or mouth ulcers. Eyes: No diplopia or visual changes. RESPIRATORY: No shortness of breath. No cough, expectoration or hemoptysis. CARDIOVASCULAR: No chest pain, orthopnea, or paroxysmal nocturnal dyspnea (PND). No edema. No palpitations. GASTROINTESTINAL: No nausea or vomiting. No diarrhea or constipation. No change in bowel movements. No heartburn or swallowing difficulties. No abdominal pain. No jaundice. No hematemesis, melena or rectal bleeding. GENITOURINARY: No hematuria or dysuria. MUSCULOSKELETAL: No pain in the muscles, joints or bones. NEUROLOGICAL: No tingling or numbness in the hands or feet. She has occasional headache. No convulsions. HEMATOLOGIC/LYMPHATIC: No bleeding. She bruises easily. She is weak, tired and fatigued from insomnia. No enlarged lymph nodes. SKIN: No skin rash or lumps. PSYCHIATRIC: No anxiety or depression. PHYSICAL EXAMINATION GENERAL: Looks stable. Well-developed, well-nourished, and in no acute distress. VITAL SIGNS: Blood pressure 143/83, pulse 79 per minute, respirations 16 per minute, temperature 96.9, pulse ox 91% on 3L oxygen. HEENT: Head: Atraumatic. No sinus tenderness to palpation. Eyes: No icterus or conjunctivitis. Mouth and Throat: No oral thrush or mucositis. NECK: Supple. No cervical or supraclavicular lymphadenopathy. LUNGS: Clear to auscultation and percussion bilaterally. HEART: Regular rate and rhythm. No gallops, murmurs, clicks or rubs. ABDOMEN: Soft and lax. No tenderness. No hepatosplenomegaly. No masses. EXTREMITIES: No cyanosis, clubbing or edema. LYMPHATICS: No peripheral lymphadenopathy. NEUROLOGICAL: Conscious, alert and oriented times three. No focal motor or sensory deficits. PSYCHIATRIC: Mood and affect appear normal. SKIN: No skin rash, bruise or purpuric eruption. ASSESSMENT Thrombocytopenia could be due to nutritional deficiencies like vitamin B12 and folate deficiency, but the patient had recently her vitamin B level and folate level checked and they were within the normal range. Immune mechanism could be the underlying cause especially ITP, which is high likely on her list, but bone marrow disease like myelodysplastic syndrome or bone marrow infiltration could be also a possibility, but with normal hemoglobin and normal white blood cell count and without the presence of left shift, those diseases are unlikely. It is unusual to have myelodysplastic syndrome with isolated thrombocytopenia. I am planning to repeat her CBC and to check platelet-associated antibodies. With her platelet count currently in the range of 33,000 and 49,000, I do not think the patient will need any help currently except for precautions with trauma and also precautions with the use of aspirin, nonsteroidal anti-inflammatory like Aleve or ibuprofen. I am planning to see the patient after we get the results of those tests to decide about further evaluation and management. PLAN 1. CBC. 2. Platelet-associated antibodies direct and indirect. 3. Patient to return in one week for further evaluation and management. 4. Patient is to contact us for any new concerns or complaints. ABBEY
[2018-04-13 09:12] VITALS: Wt 84.3 kg
[2018-04-26] MEDS ORDERED: LEVO-3 PO (09:31)
[2018-05-05] MEDS ORDERED: HYDR-385 PO (16:18)
[2018-05-17] MEDS ORDERED: LEVO-3 PO (12:54)
[2018-06-01] MEDS ORDERED: DICL100G39 TOP (10:19)
[2018-06-02] MEDS ORDERED: MORP100S32 PO (17:40)
[2018-06-02] MEDS ORDERED: HYOS-22 PO (17:40)
[2018-06-02] MEDS ORDERED: LORA-1455 PO (17:40)
== END 2018-06-27 ==
LOC: ONC 12:03
PROVIDERS: ATTEND Internal Medicine Hematology
DX: D69.6 Thrombocytopenia, unspecified (principal); Z79.899 Other long term (current) drug therapy; R53.1 Weakness; R53.83 Other fatigue
CPT/HCPCS: 85025; 86022; 86023; G0463; 99202

== ENCOUNTER → 2018-04-12 | Outpatient (CLI) | payer MEDICARE, MEDICAID ==
[~2018-04-12] MED LIST changes: -AMLO-111 PO; +AMLO-96 PO; +HYDR-4308 PO; -HYDR-654 PO
[2018-04-13 09:12] VITALS: BMI 33.6
== END ==
LOC: AMB 12:42
PROVIDERS: ATTEND Nurse Practitioner
DX: R50.9 Fever, unspecified (principal); R11.2 Nausea with vomiting, unspecified; R53.1 Weakness; J44.9 Chronic obstructive pulmonary disease, unspecified; F03.90 Unspecified dementia, unspecified severity, without behavioral disturbance, psychotic disturbance, mood disturbance, and anxiety
CPT/HCPCS: A0425; A0427

== ENCOUNTER → 2018-06-01 | Outpatient (CLI) | payer MEDICARE, MEDICAID ==
[2018-04-13 09:12] VITALS: BMI 33.6
[~2018-06-01] MED LIST changes: +AMLO-111 PO; -AMLO-96 PO; -HYDR-4308 PO; +HYDR-654 PO; +HYOS-22 PO; +LEVO-3 PO; +LORA-1455 PO; +MORP100S32 PO
== END ==
LOC: ZZSPRING 05-31 16:40
PROVIDERS: ATTEND Family Medicine
DX: E03.9 Hypothyroidism, unspecified (principal)
CPT/HCPCS: 36415; 82040; 82565; 84132; 84155; 85027